=== PATIENT | male | born 1955 | race Caucasian/White ===

== ENCOUNTER → 2017-04-20 07:56 | Outpatient (CLI) | payer OTHER, SELFPAY ==
[2017-04-20 10:17] LABS: Anion Gap 9 (5-15); BUN 19 mg/dL (7-18); BUN/Creat Ratio 16.8 RATIO (10-20); Calcium,Total 8.7 mg/dL (8.5-10.1); Chloride 106 mmol/L (98-107); Cholesterol 210 mg/dL (200); Creatinine, Serum 1.13 mg/dL (0.70-1.30); EST Glomerular Filtration Rate 70 mL/min (>60); Est Glom Filt Rate - Afr Amer 85 mL/min (>60); Glucose 119 mg/dL (74-106); High Density Lipoprotein 29 mg/dL; PSA,Total - Annual Screen 0.65 ng/mL (0.00-4.00); Potassium 4.3 mmol/L (3.5-5.1); Sodium Level 143 mmol/L (136-145); Triglycerides 447 mg/dL
== END ==
PROVIDERS: Family Provider Family Medicine; PCP Family Medicine; Visit Provider Family Medicine
DX: E78.5 Hyperlipidemia, unspecified (principal); N42.9 Disorder of prostate, unspecified
CPT/HCPCS: 36415; 80048; 80061; 84153; G0103

== ENCOUNTER → 2017-05-22 06:27 | Outpatient (CLI) | payer OTHER, SELFPAY ==
--- NOTE | 2017-05-22 10:12 | STRESSREP ---
Stress Test Report Exercise myocardial perfusion stress test. 62-year-old man with a history of shortness of breath on exertion. Stress protocol: Resting EKG demonstrates normal sinus rhythm with a rate of 62 bpm. Normal intervals are noted. Resting blood pressure is 150/92 mmHg. The patient exercised according to the regular Daniel protocol for a total duration of 7 minutes. The maximum heart rate attained was 150 bpm which was 94% of maximum predicted heart rate. The maximum workload attained was 8.5 metabolic equivalents. Patient maintained sinus rhythm throughout the recording with occasional premature ventricular complexes. At rest there were no ST or T-wave changes noted suggest ischemia. At peak exercise there was approximately [address] depression noted in leads II and aVF and 1.[address] depression noted in lead V5 and V6 suggestive of ischemia. No clinical angina or chest pain was noted the resting blood pressure was 150/92 with a peak blood pressure of 192/82 mmHg and the rate pressure product of 26,600. Myocardial perfusion protocol. 11.9 mCi of technetium 99m sestamibi was injected at rest. The patient exercised according to regular Daniel protocol for a total duration of 7 minutes attaining 94% of the maximum predicted heart rate. At peak exercise 34.3 mCi of technetium 99m sestamibi was injected. Stress images were obtained. Stress and rest images were reconstructed and compared to the short axis vertical long and horizontal long axis. Gated images were also obtained. Perfusion SPECT analysis. Review of the stress images demonstrate normal uptake of tracer noted in all areas of the myocardium the resting images similarly demonstrate normal uptake of tracer noted in all areas of the myocardium. No obvious areas of reversibility are noted to suggest ischemia and no previous infarct is noted. No chamber dilatation is noted. Gated SPECT analysis. The gated ejection fraction is 68%. Conclusion: Exercise myocardial perfusion stress test with no nuclear images suggestive of ischemia at a moderate workload. EKG changes with criteria meeting ischemia at the workload attained. Preserved ejection fraction.
== END ==
PROVIDERS: Family Provider Family Medicine; PCP Family Medicine; Visit Provider Family Medicine
DX: R06.02 Shortness of breath (principal)
CPT/HCPCS: 78452; 93017; A9500; A4216

== ENCOUNTER → 2017-05-24 10:29 | Outpatient (CLI) | payer OTHER, SELFPAY ==
[2017-05-24 11:30] LABS: Absolute Lymphocyte Count 0.83 X10^3/ul (0.83-4.51); Absolute Neutrophil Count 3.4 X10^3/uL (2.0-7.7); Basophil# 0.01 X10^3/uL; Basophil% 0.2 % (0-1); Eosinophil# 0.13 X10^3/uL; Eosinophils% 2.7 % (0-5); Hematocrit 43.7 % (40-54); Hemoglobin 14.7 g/dl (13.0-16.5); Lymphocyte # 0.83 X10^3/ul (4.0); Lymphocyte % 17.5 % (19-41); Mean Corp Hgb Conc 33.6 g/gl (32-36); Mean Corpuscular Hgb 30.7 pg (27.0-32.0); Mean Corpuscular Volume 91.2 fL (80-94); Mean Platelet Vol. 10.2 fl (6.2-12.0); Monocyte# 0.39 X10^3/uL; Monocyte% 8.2 % (0-10); Neutrophil # 3.38 X10^3/uL (2.7-7.7); Neutrophil % 71.2 % (47-70); Platelet Count 171 K/mm3 (150-450); Prothrombin Time (Protime)PT. 12.9 SECONDS (11.7-14.9); RBC Distribution Width CV 13.7 % (11.6-14.6); RBC Distribution Width SD 45.2 fl (35.1-43.9); Red Blood Count 4.79 M/mm3 (4.6-6.2); White Blood Count 4.8 K/mm3 (4.4-11.0)
[2017-05-24 11:36] LABS: POSITIVE COUNT NO; POSITIVE DIFFERENTIAL NO; POSITIVE MORPHOLOGY NO
[2017-05-24 11:54] LABS: Anion Gap 10 (5-15); BUN 22 mg/dL (7-18); BUN/Creat Ratio 20.2 RATIO (10-20); Chloride 107 mmol/L (98-107); Creatinine, Serum 1.09 mg/dL (0.70-1.30); EST Glomerular Filtration Rate 73 mL/min (>60); Est Glom Filt Rate - Afr Amer 88 mL/min (>60); Glucose 123 mg/dL (74-106); Potassium 4.2 mmol/L (3.5-5.1); Sodium Level 141 mmol/L (136-145)
[2017-05-24 17:07] LABS: Hemoglobin A1c 5.2 % (4.2-6.3)
== END ==
PROVIDERS: Family Provider Family Medicine; PCP Family Medicine; Visit Provider Internal Medicine Cardiovascular Disease
DX: R73.01 Impaired fasting glucose (principal); R94.39 Abnormal result of other cardiovascular function study
CPT/HCPCS: 36415; 80048; 83036; 85025; 85610

== ENCOUNTER → 2017-05-29 09:54 | Day surgery (SDC) | payer OTHER, SELFPAY ==
--- NOTE | 2017-05-24 10:40 | RAD_ITS ---
STUDY: X-RAY CHEST REASON FOR EXAM: Male, 62 years old. Chest pain TECHNIQUE: Frontal and lateral views of the chest. COMPARISON: None. FINDINGS: The lungs are clear and expanded. There is no demonstrated pleural abnormality. Normal size heart. Normal mediastinum and mil. Normal visualized pulmonary arteries. Normal visualized aortic arch and descending thoracic aorta. There are diffuse degenerative changes of the visualized thoracic spine. Normal visualized ribs, clavicles, and shoulders. There is no demonstrated abnormality of the visualized soft tissue structures of the upper abdomen. RAD/Chest PA and Lateral IMPRESSION: Normal x-ray examination of the chest. Electronically Signed: Teto Connell MD at 23:51 EDT , Service support ,
[2017-05-26 13:50] VITALS: BMI 31.3
--- NOTE | 2017-05-29 11:26 | CL.D_ITS ---
Patient Name: JUVENAL FELICIANO Study Date: 05/29/2017 Performing: Dominick Larkin MD Ht: 68.11 inches 173 cm : 1955 Wt: 205.03 lbs 93 kg Age: 62 Gender: male BSA: 2.07 PROCEDURE(S) PERFORMED [id number]/COR/LV CLINICAL PROFILE AND INDICATIONS INDICATIONS: Other HEART FAILURE: None Stress/Imaging Stress Test w/SPECT MPI: Yes Result: Positive Low RiskStress Test with SPECT MPI: Positive Low Risk Angina Classification Anginal Classification w/in 2 Weeks: CCS I CAD Presentations: Symptom unlikely to be ischemic. CONCLUSIONS Normal coronary arteries Normal LV size, wall motion,and systolic function RECOMMENDATIONS Medical therapy DESCRIPTION OF PROCEDURE The patient arrived to the procedure lab. The risks and benefits of the procedure as well as a full d escription of our services here and current unavailability of surgical backup were fully explained to the patient and/or their significant other prior to the catheterization. The Timeout was completed, verifying the correct patient and procedure. The patient's procedural site was prepped and draped in the usual fashion. Local anesthetic was given subcutaneously to right radial region with Lidocaine 2% . Using a modified Seldinger technique, arterial access was obtained via the right radial artery, a 6 Fr sheath was inserted. Left Coronary Artery selective angiography was performed in multiple views u sing a 5 Fr. 4.0 Wesson catheter. Right Coronary Artery selective angiography was then performed in mu ltiple views using a 5 Fr. 4.0 Wesson catheter. Left Ventriculography was performed in KERR projection using a 5 Fr. Pigtail catheter. LV to AO pullback pressures were then recorded. CORONARY ANGIOGRAPHY DOMINANCE: Right Dominant LEFT HEART ASSESSMENT Left Ventricular Ejection Fraction: by LV Gram 60 % Normal LV wall motion Normal Left Ventricular systolic function Normal Left Ventricular systolic function LEFT MAIN: Angiographically normal LEFT ANTERIOR DECENDING ARTERY: Angiographically normal CIRCUMFLEX ARTERY: Angiographically normal RIGHT CORONARY ARTERY: Angiographically normal COMPLICATIONS No Complications PROCEDURE MEDICATIONS Fentanyl 50 mcg IV Versed 1 mg IV Versed 1 mg IV Oxygen: 2 L/min via nasal cannula Heparin diluted in 23cc Heparinized saline. Patient given 10cc IA of this solution. 05/29/2017 11:03:2 5 Verapamil 2.5mg, Ntg 100mcgs, 2000 units of Heparin diluted in 23cc Heparinized saline. Patient give n 10cc IA of this solution. 05/29/2017 11:03:25 SUMMARY OF HEMODYNAMIC DATA Time AIR REST ECG 10:15:30 AO 119/73 (91) SA 11:06:57 LV 129/4, 11 11:13:25 LV 123/5, 10 11:13:33 LV 126/7, 13 11:14:58 LVp 125/3, 10 11:15:04 AOp 135/75 (102) 11:15:09 Signed By Dominick Larkin MD On 05/29/2017 11:25:24 AM Dominick Larkin MD
== END ==
PROVIDERS: Family Provider Family Medicine; PCP Family Medicine; Visit Provider Internal Medicine Cardiovascular Disease
DX: R94.39 Abnormal result of other cardiovascular function study (principal); E78.5 Hyperlipidemia, unspecified; E66.9 Obesity, unspecified; Z87.891 Personal history of nicotine dependence; Z68.34 Body mass index [BMI] 34.0-34.9, adult
CPT/HCPCS: 71046; 93458; 99152; 99153; J3010; J7040; Q9967; C1769; C1894

== ENCOUNTER → 2018-05-31 07:50 | Outpatient (CLI) | payer OTHER, SELFPAY ==
[2018-05-24 09:08] VITALS: BMI 32.5
[2018-05-31 10:46] LABS: AST(SGOT) 30 U/L (15-37); Alanine Aminotransfer ALT/SGPT 58 U/L (16-61); Albumin, Serum 4.3 g/dL (3.2-5.0); Alkaline Phosphatase 54 U/L (45-117); Bilirubin, Direct 0.19 mg/dL (0.00-0.30); Cholesterol 200 mg/dL (200); Globulin 2.7 g/dL (2.2-4.2); High Density Lipoprotein 29 mg/dL; Triglycerides 318 mg/dL; Very Low Density Lipoprotein 64 mg/dL (5-40)
== END ==
PROVIDERS: Family Provider Family Medicine; PCP Family Medicine; Referring Provider Internal Medicine Cardiovascular Disease; Visit Provider Internal Medicine Cardiovascular Disease
DX: E78.5 Hyperlipidemia, unspecified (principal)
CPT/HCPCS: 36415; 80061; 80076

== ENCOUNTER → 2018-10-30 12:21 | Outpatient (CLI) | payer OTHER, SELFPAY ==
[2018-05-24 09:08] VITALS: BMI 32.5
--- NOTE | 2018-10-30 12:24 | RAD_ITS ---
STUDY: X-RAY CHEST REASON FOR EXAM: Male, 63 years old. Posterior chest pain. TECHNIQUE: PA and lateral views of the chest. COMPARISON: Comparison is made with prior study dated May 24, 2017. FINDINGS: The lungs are clear and expanded. Scattered calcified granulomas. There is no demonstrated pleural abnormality. Normal size heart. Normal mediastinum and mil. Normal visualized pulmonary arteries. Normal visualized aortic arch and descending thoracic aorta. There are diffuse degenerative changes of the visualized thoracic spine. Normal visualized ribs, clavicles, and shoulders. There is no demonstrated abnormality of the visualized soft tissue structures of the upper abdomen. RAD/Chest PA and Lateral IMPRESSION: No acute abnormality is seen. Electronically Signed: Luca Diaz, at 12:39 EDT , Service support ,
== END ==
PROVIDERS: Family Provider Family Medicine; PCP Family Medicine; Referring Provider Nurse Practitioner Adult Health; Visit Provider Nurse Practitioner Adult Health
DX: R09.89 Other specified symptoms and signs involving the circulatory and respiratory systems (principal)
CPT/HCPCS: 71046

== ENCOUNTER → 2018-11-28 07:14 | Outpatient (CLI) | payer OTHER, SELFPAY ==
[2018-05-24 09:08] VITALS: BMI 32.5
[2018-11-28 10:15] LABS: AST(SGOT) 29 U/L (15-37); Alanine Aminotransfer ALT/SGPT 56 U/L (16-61); Albumin, Serum 4.3 g/dL (3.2-5.0); Alkaline Phosphatase 58 U/L (45-117); Bilirubin, Direct 0.15 mg/dL (0.00-0.30); Globulin 3.2 g/dL (2.2-4.2); Protein, Total 7.5 g/dL (6.4-8.2)
[2018-11-28 10:31] LABS: Anion Gap 3 (5-15); BUN 20 mg/dL (7-18); BUN/Creat Ratio 17.1 RATIO (10-20); Calcium,Total 9.4 mg/dL (8.5-10.1); Chloride 109 mmol/L (98-107); Cholesterol 223 mg/dL (200); Creatinine, Serum 1.17 mg/dL (0.70-1.30); EST Glomerular Filtration Rate 67 mL/min (>60); Est Glom Filt Rate - Afr Amer 81 mL/min (>60); Glucose 109 mg/dL (74-106); High Density Lipoprotein 36 mg/dL; Potassium 4.1 mmol/L (3.5-5.1); Sodium Level 140 mmol/L (136-145); Thyroid Stim Hormone (TSH) 1.81 uIU/mL (0.358-3.74); Triglycerides 326 mg/dL; Uric Acid 7.3 mg/dL (3.5-7.2); Very Low Density Lipoprotein 65 mg/dL (5-40)
== END ==
PROVIDERS: Internal Medicine Cardiovascular Disease; Family Provider Family Medicine; PCP Family Medicine; Referring Provider Family Medicine; Visit Provider Family Medicine
DX: Z00.00 Encounter for general adult medical examination without abnormal findings (principal); E78.5 Hyperlipidemia, unspecified
CPT/HCPCS: 36415; 80048; 80061; 80076; 84153; 84443; 84550; G0103

== ENCOUNTER → 2019-04-17 08:29 | Outpatient (CLI) | payer OTHER, SELFPAY ==
[2018-05-24 09:08] VITALS: BMI 32.5
[2019-04-17 10:43] LABS: Erythrocyte Sedimentation Rate 3 mm/hr (0-20)
[2019-04-17 11:14] LABS: Cholesterol 233 mg/dL (200); High Density Lipoprotein 45 mg/dL; Triglycerides 273 mg/dL; Uric Acid 5.8 mg/dL (3.5-7.2); Very Low Density Lipoprotein 55 mg/dL (5-40)
[2019-04-18 15:23] LABS: ANTINUCLEAR ANTIBODIES DIRECT Negative (Negative)
== END ==
PROVIDERS: PCP Family Medicine; Referring Provider Family Medicine; Visit Provider Family Medicine
DX: M10.9 Gout, unspecified (principal); E78.00 Pure hypercholesterolemia, unspecified
CPT/HCPCS: 36415; 80061; 84550; 85652; 86038

== ENCOUNTER → 2020-09-22 09:34 | Outpatient (CLI) | payer MEDICARE, BC, SELFPAY ==
[2019-11-20 15:55] VITALS: BMI 32.2
[2020-09-22 12:39] LABS: Absolute Neutrophil Count 3.3 X10^3/uL (2.0-7.7); Basophil# 0.02 X10^3/uL; Basophil% 0.4 % (0-1); Eosinophil# 0.15 X10^3/uL; Eosinophils% 3.2 % (0-5); Hemoglobin 14.3 g/dL (13.0-16.5); Lymphocyte % 14.8 % (19-41); Mean Corpuscular Hgb 30.8 pg (27.0-32.0); Mean Corpuscular Volume 90.3 fL (80-94); Mean Platelet Vol. 9.8 fl (6.2-12.0); Monocyte% 10.5 % (0-10); NRBC Flagged by Analyzer 0 % (0-5); Neutrophil # 3.34 X10^3/uL (2.7-7.7); Neutrophil % 70.5 % (47-70); Platelet Count 181 K/mm3 (150-450); RBC Distribution Width SD 45.9 fl (35.1-43.9); Red Blood Count 4.65 M/mm3 (4.6-6.2); White Blood Count 4.7 K/mm3 (4.4-11.0)
[2020-09-22 13:14] LABS: Hemoglobin A1c 5.5 % (3.8-5.6)
[2020-09-22 13:25] LABS: ALB/GLOB Ratio 1.5 RATIO (0.9-2.4); AST(SGOT) 23 U/L (15-37); Alanine Aminotransfer ALT/SGPT 47 U/L (16-61); Albumin, Serum 4.3 g/dL (3.2-5.0); Alkaline Phosphatase 47 U/L (45-117); Anion Gap 8 (5-15); BUN 15 mg/dL (7-18); BUN/Creat Ratio 14.3 RATIO (10-20); Chloride 108 mmol/L (98-107); Cholesterol 151 mg/dL (200); Creatinine, Serum 1.05 mg/dL (0.70-1.30); EST Glomerular Filtration Rate 75 mL/min (>60); Est Glom Filt Rate - Afr Amer 91 mL/min (>60); Globulin 2.9 g/dL (2.2-4.2); Glucose 105 mg/dL (74-106); High Density Lipoprotein 32 mg/dL; PSA,Total - Annual Screen 0.67 ng/mL (0.00-4.00); Potassium 4.3 mmol/L (3.5-5.1); Protein, Total 7.2 g/dL (6.4-8.2); Sodium Level 140 mmol/L (136-145); Triglycerides 178 mg/dL; Uric Acid 5.8 mg/dL (3.5-7.2); Very Low Density Lipoprotein 36 mg/dL (5-40)
== END ==
PROVIDERS: PCP Family Medicine; Referring Provider Family Medicine; Visit Provider Family Medicine
DX: E78.5 Hyperlipidemia, unspecified (principal); M10.9 Gout, unspecified; R73.01 Impaired fasting glucose; Z51.81 Encounter for therapeutic drug level monitoring; Z12.5 Encounter for screening for malignant neoplasm of prostate
CPT/HCPCS: 36415; 80053; 80061; 83036; 84153; 84550; 85025; G0103

== ENCOUNTER → 2020-09-24 08:46 | Outpatient (CLI) | payer MEDICARE, BC, SELFPAY ==
[2019-11-20 15:55] VITALS: BMI 32.2
--- NOTE | 2020-09-24 08:50 | US_ITS ---
STUDY: ULTRASOUND BREAST - RIGHT REASON FOR EXAM: Male, 65 years old. Pain after trauma TECHNIQUE: Axial and longitudinal images of the RIGHT breast were performed with a high resolution ultrasound transducer. # OF IMAGES: 24 COMPARISON: None. FINDINGS: RIGHT Breast: Sonographic evaluation of the right breast in the retroareolar region shows a poorly defined hypoechoic nonvascular area measuring 1.4 x 1.6 x 1.0 cm and likely represents a hematoma. Follow-up recommended to assure resolution. No suspicious solid mass architectural distortion or clustered shadowing calcifications US/Breast Limited Unilateral IMPRESSION: Likely retroareolar hematoma after recent trauma follow-up recommended to assure resolution ASSESSMENT CATEGORY: BIRADS Category 3: Probably Benign - Short-Interval Follow-up Suggested. A letter regarding these results will be sent to the patient by the facility within 30 days. Electronically Signed: Art Driscoll MD at 10:05 EDT , Service support ,
--- NOTE | 2020-09-24 08:50 | US_ITS ---
PROCEDURES: ULTRASOUND AORTA REASON FOR EXAM: Male, 65 years old. HISTORY OF SMOKING TECHNIQUE: Ultrasound evaluation of the aorta was performed with real-time and static goel-scale imaging. COMPARISON: None. FINDINGS: There is no elongation or tortuosity of the abdominal aorta. Aorta measures: Proximal 2.3 cm. Middle 1.55 cm. Distal 1.50 cm. Aorta measure transversely: Proximal 2.39 cm. Middle 1.90 cm. Distal 1.41 cm. Right iliac artery measures: 0.88 cm. Right iliac artery measure transversely: 1.02 cm. Left iliac artery measures: 0.88 cm. Left iliac artery measure transversely: 1.04 cm. There is no demonstrated aneurysm.. US/US ABD AORTA SCREEN/AAA IMPRESSION: No sonographic evidence of aneurysm or dissection Electronically Signed: Art Driscoll MD at 9:51 EDT , Service support ,
--- NOTE | 2020-09-24 08:50 | BI_ITS ---
MAMMOGRAPHY - BILATERAL DIAGNOSTIC REASON FOR EXAM: Male, 65 years old. Right breast lump and tenderness following injury to the right breast. PERTINENT HISTORY: Non-contributory. TECHNIQUE: Digital bilateral breast kolby (3D mammographic acquisition) in the CC and MLO projections. 2-D mediolateral oblique (MLO) and craniocaudad (CC) views of both breasts were obtained. CAD: Full Field Digital Mammography with Computer Added Detection was performed. COMPARISON: None. Baseline examination. FINDINGS: Breast Composition: Asymmetry of breast tissue or more breast tissue is seen in the retroareolar region of the right breast as compared to the left side. With the patient''s history of trauma to the breast, this may represent posttraumatic edema or possible bruising. There are no dominant masses or suspicious calcifications. No other significant abnormalities are identified. BI/DIAG MAMM W/CAD, BILAT IMPRESSION: Asymmetry of breast tissue were more breast tissue is seen in the right breast as compared to the left side. Correlation with ultrasound is recommended. ASSESSMENT CATEGORY: BIRADS Category 0: Incomplete. Need additional imaging evaluation. A letter regarding these results will be sent to the patient by the facility within 30 days. Approximately 10% of breast cancers are not detected by mammography. A normal mammogram should not delay biopsy of a clinically suspicious abnormality. Electronically Signed: Luca Diaz MD at 10:10 EDT , Service support ,
== END ==
PROVIDERS: PCP Family Medicine; Referring Provider Family Medicine; Visit Provider Family Medicine
DX: Z13.6 Encounter for screening for cardiovascular disorders (principal); Z87.891 Personal history of nicotine dependence; N63.10 Unspecified lump in the right breast, unspecified quadrant; N64.89 Other specified disorders of breast
CPT/HCPCS: 76642; 76706; 77062; 77066; G0279

== ENCOUNTER 2021-03-02 08:33 | Outpatient (CLI) | payer MEDICARE, BC, SELFPAY | END 2021-03-02 23:59 | disposition short-term general hospital (02) | LOC: LABSPEC 03-03 08:35 | PROVIDERS: PCP Family Medicine; Visit Provider Family Medicine | DX: U07.1 COVID-19 (principal) | CPT/HCPCS: 87635; U0003; U0005 ==

== ENCOUNTER → 2021-09-23 | Outpatient (CLI) | payer MEDICARE, BC, SELFPAY ==
[2021-09-23 10:22] LABS: Absolute Lymphocyte Count 0.64 X10^3/uL (0.83-4.51); Absolute Neutrophil Count 4.7 X10^3/uL (2.0-7.7); Basophil# 0.02 X10^3/uL; Basophil% 0.3 % (0-1); Eosinophil# 0.14 X10^3/uL; Eosinophils% 2.3 % (0-5); Hematocrit 43.1 % (40-54); Hemoglobin 14.7 g/dL (13.0-16.5); Lymphocyte # 0.64 X10^3/ul (0.83-4.51); Lymphocyte % 10.5 % (19-41); Mean Corp Hgb Conc 34.1 g/dL (32-36); Mean Corpuscular Hgb 30.3 pg (27.0-32.0); Mean Corpuscular Volume 88.9 fL (80-94); Mean Platelet Vol. 9.8 fl (6.2-12.0); Monocyte# 0.51 X10^3/uL; Monocyte% 8.3 % (0-10); NRBC Flagged by Analyzer 0 % (0-5); Neutrophil # 4.74 X10^3/uL (2.7-7.7); Neutrophil % 77.6 % (47-70); Platelet Count 176 K/mm3 (150-450); RBC Distribution Width CV 13.9 % (11.6-14.6); RBC Distribution Width SD 44.6 fl (35.1-43.9); Red Blood Count 4.85 M/mm3 (4.6-6.2); White Blood Count 6.1 K/mm3 (4.4-11.0)
[2021-09-23 11:03] LABS: ALB/GLOB Ratio 1.3 RATIO (0.9-2.4); AST(SGOT) 33 U/L (15-37); Alanine Aminotransfer ALT/SGPT 53 U/L (16-61); Albumin, Serum 4.1 g/dL (3.2-5.0); Alkaline Phosphatase 50 U/L (45-117); Anion Gap 6 (5-15); BUN 19 mg/dL (7-18); BUN/Creat Ratio 18.3 RATIO (10-20); Calcium,Total 9.4 mg/dL (8.5-10.1); Chloride 106 mmol/L (98-107); Cholesterol 218 mg/dL (200); Creatinine, Serum 1.04 mg/dL (0.70-1.30); EST Glomerular Filtration Rate 76 mL/min (>60); Est Glom Filt Rate - Afr Amer 92 mL/min (>60); Globulin 3.1 g/dL (2.2-4.2); Glucose 115 mg/dL (74-106); High Density Lipoprotein 34 mg/dL; PSA,Total - Annual Screen 0.85 ng/mL (0.00-4.00); Potassium 4.4 mmol/L (3.5-5.1); Protein, Total 7.2 g/dL (6.4-8.2); Sodium Level 138 mmol/L (136-145); Triglycerides 489 mg/dL; Uric Acid 7.5 mg/dL (3.5-7.2)
[2021-09-24 07:50] LABS: Hemoglobin A1c 5.5 % (3.8-5.6)
== END | disposition home or self-care (01) ==
LOC: MTLAB 09:03
PROVIDERS: PCP Family Medicine; Referring Provider Family Medicine; Visit Provider Family Medicine
DX: Z12.5 Encounter for screening for malignant neoplasm of prostate (principal); R73.01 Impaired fasting glucose; E78.5 Hyperlipidemia, unspecified; M10.9 Gout, unspecified; Z51.81 Encounter for therapeutic drug level monitoring
CPT/HCPCS: 36415; 80053; 80061; 83036; 84153; 84550; 85025; G0103

== ENCOUNTER → 2022-10-10 | Outpatient (CLI) | payer MEDICARE, BC, SELFPAY ==
[2022-10-10 12:15] LABS: Absolute Lymphocyte Count 0.82 X10^3/uL (0.83-4.51); Absolute Neutrophil Count 2.9 X10^3/uL (2.0-7.7); Basophil# 0.02 X10^3/uL; Basophil% 0.5 % (0-1); Eosinophil# 0.12 X10^3/uL; Eosinophils% 2.8 % (0-5); Hematocrit 41.6 % (40-54); Hemoglobin 13.9 g/dL (13.0-16.5); Lymphocyte # 0.82 X10^3/ul (0.83-4.51); Lymphocyte % 18.9 % (19-41); Mean Corp Hgb Conc 33.4 g/dL (32-36); Mean Corpuscular Hgb 30.8 pg (27.0-32.0); Mean Corpuscular Volume 92.2 fL (80-94); Mean Platelet Vol. 10.3 fl (6.2-12.0); Monocyte# 0.41 X10^3/uL; Monocyte% 9.5 % (0-10); NRBC Flagged by Analyzer 0 % (0-5); Neutrophil # 2.94 X10^3/uL (2.7-7.7); Neutrophil % 67.8 % (47-70); Platelet Count 159 K/mm3 (150-450); RBC Distribution Width CV 13.1 % (11.6-14.6); RBC Distribution Width SD 43.7 fl (35.1-43.9); Red Blood Count 4.51 M/mm3 (4.6-6.2); White Blood Count 4.3 K/mm3 (4.4-11.0)
[2022-10-10 13:09] LABS: ALB/GLOB Ratio 1.3 RATIO (0.9-2.4); AST(SGOT) 19 U/L (15-37); Alanine Aminotransfer ALT/SGPT 27 U/L (16-61); Albumin, Serum 3.9 g/dL (3.2-5.0); Alkaline Phosphatase 45 U/L (45-117); Anion Gap 5 (5-15); BUN 22 mg/dL (7-18); BUN/Creat Ratio 20.4 RATIO (10-20); Calcium,Total 8.8 mg/dL (8.5-10.1); Chloride 111 mmol/L (98-107); Cholesterol 163 mg/dL (200); Creatinine, Serum 1.08 mg/dL (0.70-1.30); EST Glomerular Filtration Rate 72 mL/min (>60); Est Glom Filt Rate - Afr Amer 88 mL/min (>60); Globulin 2.9 g/dL (2.2-4.2); Glucose 100 mg/dL (74-106); High Density Lipoprotein 39 mg/dL; PSA,Total - Annual Screen 0.72 ng/mL (0.00-4.00); Potassium 4.3 mmol/L (3.5-5.1); Protein, Total 6.8 g/dL (6.4-8.2); Sodium Level 143 mmol/L (136-145); Triglycerides 165 mg/dL; Uric Acid 7.9 mg/dL (3.5-7.2); Very Low Density Lipoprotein 33 mg/dL (5-40)
== END | disposition home or self-care (01) ==
LOC: BFHLAB 08:26
PROVIDERS: PCP Family Medicine; Referring Provider Family Medicine; Visit Provider Family Medicine
DX: E78.5 Hyperlipidemia, unspecified (principal); M10.9 Gout, unspecified; Z12.5 Encounter for screening for malignant neoplasm of prostate; Z51.81 Encounter for therapeutic drug level monitoring
CPT/HCPCS: 36415; 80053; 80061; 84153; 84550; 85025; G0103

== ENCOUNTER → 2023-02-16 | Outpatient (CLI) | payer MEDICARE, BC, SELFPAY ==
--- NOTE | 2023-02-16 09:11 | RAD_ITS ---
STUDY: X-RAY - LUMBAR SPINE REASON FOR EXAM: Male, 67 years old. Back pain. TECHNIQUE: 5 view(s) of the lumbar spine were obtained. COMPARISON: None FINDINGS: Osteopenia. Normal lumbar lordosis. No substantial scoliosis. Normal alignment of the vertebrae. Diffuse mild lower thoracic and lumbosacral facet sclerosis. Diffuse mild intervertebral disc space narrowing with osteophytes most marked at L2-3, L3-4, L4-5 and to the greatest degree L5-S1. Vascular calcification. RAD/L/S Spine Min 4 Views IMPRESSION: Osteopenia with mild diffuse lower thoracic and lumbosacral spondylosis. Electronically Signed: Chad Morgan MD at 13:28 EST ,
== END | disposition home or self-care (01) ==
LOC: MTRAD 09:09
PROVIDERS: PCP Family Medicine; Referring Provider Family Medicine; Visit Provider Family Medicine
DX: M54.17 Radiculopathy, lumbosacral region (principal)
CPT/HCPCS: 72110

== ENCOUNTER → 2023-04-24 | Outpatient (CLI) | payer MEDICARE, BC, SELFPAY ==
--- NOTE | 2023-04-24 | MRI_ITS ---
EXAM: MR LUMBAR SPINE WITHOUT INTRAVENOUS CONTRAST CLINICAL INDICATION: RADICULOPATHY TECHNIQUE: Multiplanar and multisequence MR images of the lumbar spine without intravenous contrast. COMPARISON: Lumbar spine radiographs, 02/16/[address] abdomen and pelvis, 12/19/2016 FINDINGS: VERTEBRAE: Modic type II endplate signal changes at L5-S1. The lumbar vertebra are normal in height and alignment. No spondylolisthesis. There is preservation of the normal lumbar lordosis. SPINAL CORD: No significant abnormality. Normal position and signal intensity of the conus medullaris. SOFT TISSUES: No significant abnormality. DISCS/SPINAL CANAL/NEURAL FORAMINA: L1-L2: Mild bilateral facet arthrosis. No disc herniation, spinal canal stenosis, or neural foraminal narrowing. L2-L3: Mild bilateral facet arthrosis. Very mild disc bulge. No disc herniation, spinal canal stenosis, or neural foraminal narrowing. L3-L4: Disc height loss and disc desiccation. Disc bulge and mild bilateral facet arthrosis. Mild spinal canal stenosis and mild bilateral neural foraminal narrowing. L4-L5: Disc height loss and disc desiccation. Disc bulge and moderate bilateral facet arthrosis. Mild spinal canal stenosis and moderate right greater than left neural foraminal narrowing. No nerve root impingement. L5-S1: Disc height loss and disc desiccation. Central disc herniation superimposed upon a disc bulge and mild bilateral facet arthrosis. Moderate bilateral neural foraminal narrowing and mild spinal canal stenosis. No nerve root impingement. MRI/Spine Lumbar (Routine) IMPRESSION: Multilevel degenerative changes. No critical spinal canal and neural foraminal stenosis and no evidence of nerve root impingement. Electronically Signed: Adis Ochoa DO at 0:01 EST ,
--- OUTSIDE RECORDS SUMMARY | 2023-04-24 08:30 | XMS RPT_ITS | CCD ---
Author Name Unknown Address [address] [place] [address] Organization [facility] Care Team Providers Care Service Line Layer Name Role Phone Eduardo Daniels Primary Care Provider [phone] SYSTEM, PROVIDER NOT IN Attending Unavaila ble SYSTEM, PROVIDER NOT IN Referring Unavaila ble EDUARDO DANIELS Primary Care Unavailable YOLANDA DAY Admitting Unavailab le JAMAALYOLANDA ONEILL Referring Unavailab le DANIELSEDUARDO NERI Primary Care Unavailable Yolanda Day Unavailable [phone] Yolanda Day Unavailable YOLANDA DAY Admitting Unavailab YOLANDA Sanchez Referring Unavailab le DANIELSEDUARDO NERI Primary Care Unavailable YOLANDA DAY Attending Unavailab le YOLANDA DAY Referring Unavailab le DANIELSEDUARDO NERI Primary Care Unavailable STEFANY PATEL Admitting Unavailable MITUL HASSAN Attending Unavailable STEFANY PATEL Referring Unavailable EDUARDO DANIELS Primary Care Unavailable YOLANDA ADY Admitting Unavailab le YOLANDA DAY Attending Unavailab le EDUARDO DANIELS Primary Care Unavailable STEFANY PATEL Admitting Unavailable SLOANE JOYCE Attending Unavailable STEFANY PATEL Referring Unavailable DANIELSEDUARDO NERI Primary Care Unavailable YOLANDA DAY Attending Unavailab YOLANDA Sanchez Referring Unavailab le DANIELSEDUARDO NERI Primary Care Unavailable MELO GARCIA Attending Unavailable STEFANY PATEL Referring Unavailable DANIELSEDUARDO NERI Primary Care Unavailable STEFANY PATEL Admitting Unavailable STEFANY PATEL Admitting Unavailable EUGENEMITUL Attending Unavailable STEFANY PATEL Referring Unavailable DANIELSEDUARDO NERI Primary Care Unavailable STEFANY PATEL Admitting Unavailable MELO GARCIA Attending Unavailable STEFANY PATEL Referring Unavailable DANIELSEDUARDO NERI Primary Care Unavailable MITALI, STEFANY MESA Admitting Unavailable SLOANE JOYCE Attending Unavailable PATELSTEFANY PARKER Referring Unavailable DANIELS, EDUARDO CONCEPCION Primary Care Unavailable MITUL HASSAN Attending Unavailable STEFANY PATEL Referring Unavailable DANIELS, EDUARDO CONCEPCION Primary Care Unavailable STEFANY PATEL Admitting Unavailable DANIELS, EDUARDO CONCEPCION Primary Care Unavailable MORIAH HODGE Attending Unavailable DANIELS, EDUARDO CONCEPCION Primary Care Unavailable YOLANDA DAY Referring Unavailab le DANIELS, EDUARDO CONCEPCION Primary Care Unavailable HILARY VELAZQUEZ Attending Unavailable DANIELS, EDUARDO CONCEPCION Primary Care Unavailable YOLANDA DAY Attending Unavailab le DANIELS, EDUARDO CONCEPCION Primary Care Unavailable PAULA REARDON Attending Unavailable DANIELS, EDUARDO CONCEPCION Primary Care Unavailable YOLANDA DAY Attending Unavailab le DANIELS, EDUARDO CONCEPCION Primary Care Unavailable YOLANDA DAY Attending Unavailab le DANIELS, EDUARDO CONCECPION Primary Care Unavailable YOLANDA DAY Attending Unavailab le DANIELS, EDUARDO CONCEPCION Primary Care Unavailable YOLANDA DAY Admitting Unavailab YOLANDA Sanchez Referring Unavailab le DANIELS, EDUARDO CONCEPCION Primary Care Unavailable STEFANY PATEL Attending Unavailable Medications Current Medications Medication Drug Class(es) Dates Sig (Normalized) Sig (Original) allopurinol 300 mg oral tablet (20 sources) Xanthine Oxidase Inhibitor Start: 08-19-2019 End: 01-07-2020 take 1 tablet by mouth once daily allopurinoL (ZYLOPRIM) 300 MG tablet Take 300 mg by mouth daily . 0 08/19/2019 Active aspirin 325 mg delayed release oral tablet (19 sources) Platelet Aggregation Inhibitor, Nonsteroidal Anti-inflammatory Drug Start: 01-06-2020 End: 02-06-2020 take 1 tablet by mouth twice daily aspirin 325 MG EC tablet Take 1 (one) tablet (325 mg total) by mouth 2 (two) times a day . 60 tablet 0 01/07/2020 02/06/2020 Active cyclobenzaprine hydrochloride 10 mg oral tablet (11 sources) Muscle Relaxant Start: 01-06-2020 End: 01-17-2020 take 1 tablet by mouth three times daily as needed for muscle spasms cyclobenzaprine (FLEXERIL) 10 MG tablet Take 1 (one) tablet (10 mg total) by mouth 3 (three) times a day as needed for muscle spasms . 30 tablet 0 01/07/2020 01/17/2020 Active diphenhydrAMINE hydrochloride 25 mg oral tablet (16 sources) Histamine-1 Receptor Antagonist take 1 tablet by mouth every six hours as needed diphenhydrAMINE (BENADRYL) 25 mg tablet Take 25 mg by mouth every 6 (six) hours as needed. 0 Active multivitamin (multivitamin) per tablet (19 sources) take 1 tablet by mouth once daily multivitamin (multivitamin) per tablet Take 1 tablet by mouth daily . 0 Active oxyCODONE hydrochloride 5 mg oral tablet (20 sources) Opioid Agonist Start: 02-10-2020 End: 02-09-2021 take 1 tablet by mouth every four hours as needed for pain oxyCODONE (Roxicodone) 5 MG immediate release tablet Indications: Status post total bilateral knee replacement Take 1 (one) tablet (5 mg total) by mouth every 4 (four) hours as needed for pain . 40 tablet 0 02/10/2020 02/09/2021 Active Completed/Discontinued Medications Medication Drug Class(es) Dates Sig (Normalized) Sig (Original) acetaminophen 325 mg oral tablet (11 sources) Start: 01-07-2020 End: 01-17-2020 take 2 tablets by mouth every four hours acetaminophen (TYLENOL) 325 MG tablet Take 2 (two) tablets (650 mg total) by mouth every 4 (four) hours for 10 days . 30 tablet 0 01/07/2020 01/17/2020 Problems Problem Classification Problem Date Documented Date Episodic/Chronic Essential hypertension (1 source) Hypertensive disorder; Translations: [Hypertension, unspecified type] Chronic Osteoarthritis (20 sources) Primary gonarthrosis, bilateral; Translations: [Primary osteoarthritis of both knees] Onset: 10-16-2019 10-16-2019 Chronic Osteoarthritis (4 sources) Osteoarthritis of left knee joint; Translations: [Osteoarthritis of right knee joint] Other connective tissue disease (20 sources) History of total knee arthroplasty; Translations: [Status post total knee replacement, bilateral] Onset: 01-06-2020 01-06-2020 Chronic Results Test Name Value Interpretation Reference Range Facil ity Vital Signs Date Time Vital Sign Value Performing Clinician Faci lity 01-24-2020 10:29-0500 Body Temperature 97.7 [degF] [facility] 01-24-2020 10:29-0500 BP Diastolic 78 mm[Hg] [facility] 01-24-2020 10:29-0500 BP Systolic 145 mm[Hg] [facility] 01-24-2020 10:29-0500 Pulse (Heart Rate) 88 /min [facility] 01-24-2020 10:29-0500 Pulse Oximetry 98 % [facility] 01-24-2020 10:29-0500 Respiratory Rate 17 /min [facility] 01-22-2020 19:26-0500 Body Temperature 98.01 [degF] [facility] 01-22-2020 19:26-0500 BP Diastolic 78 mm[Hg] [facility] 01-22-2020 19:26-0500 BP Systolic 145 mm[Hg] [facility] 01-22-2020 19:26-0500 Pulse (Heart Rate) 71 /min [facility] 01-22-2020 19:26-0500 Pulse Oximetry 98 % [facility] 01-22-2020 19:26-0500 Respiratory Rate 17 /min [facility] 01-21-2020 10:56-0500 Body Temperature 98.2 [degF] [facility] 01-21-2020 10:56-0500 BP Diastolic 80 mm[Hg] [facility] 01-21-2020 10:56-0500 BP Systolic 154 mm[Hg] [facility] 01-21-2020 10:56-0500 Pulse ([facility] Rate) 82 /[facility] 10:56-0500 Pulse Oximetry 98 % [facility] 01-21-2020 10:56-0500 Respiratory Rate 16 /min [facility] 01-20-2020 11:22-0500 Body Temperature 98.01 [degF] [facility] 01-20-2020 11:22-0500 BP Diastolic 77 mm[Hg] [facility] 01-20-2020 11:22-0500 BP Systolic 132 mm[Hg] [facility] 01-20-2020 11:22-0500 Pulse (Heart Rate) 71 /min [facility] 01-20-2020 11:22-0500 Pulse Oximetry 98 % [facility] 01-20-2020 11:22-0500 Respiratory Rate 18 /min [facility] 01-16-2020 10:04-0500 Body Temperature 98.8 [degF] [facility] 01-16-2020 10:04-0500 BP Diastolic 80 mm[Hg] [facility] 01-16-2020 10:04-0500 BP Systolic 140 mm[Hg] [facility] 01-16-2020 10:04-0500 Pulse (Heart Rate) 71 /min [facility] 01-16-2020 10:04-0500 Pulse Oximetry 98 % [facility] 01-16-2020 10:04-0500 Respiratory Rate 16 /min [facility] 01-15-2020 09:43-0500 Body Temperature 97.7 [degF] [facility] 01-15-2020 09:43-0500 BP Diastolic 85 mm[Hg] [facility] 01-15-2020 09:43-0500 BP Systolic 153 mm[Hg] [facility] 01-15-2020 09:43-0500 Pulse (Heart Rate) 97 /min [facility] 01-15-2020 09:43-0500 Pulse Oximetry 98 % [facility] 01-15-2020 09:43-0500 Respiratory Rate 17 /min [facility] 01-14-2020 09:46-0500 Body Temperature 98.01 [degF] [facility]-14[facility]2020 09:46-0500 BP Diastolic 80 mm[Hg] Brenna Ari [facility] 01-14-2020 09:46-0500 BP Systolic 140 mm[Hg] Brenna Ari [facility] 01-14-2020 09:46-0500 Pulse (Heart Rate) 80 /min [facility] 01-14-2020 09:46-0500 Pulse Oximetry 98 % [facility] 01-14-2020 09:46-0500 Respiratory Rate 16 /min [facility] 01-13-2020 10:40-0500 Body Temperature 98.01 [degF] [facility] 01-13-2020 10:40-0500 BP Diastolic 87 mm[Hg] [facility] 01-13-2020 10:40-0500 BP Systolic 160 mm[Hg] [facility] 01-13-2020 10:40-0500 Pulse (Heart Rate) 78 /min [facility] 01-13-2020 10:40-0500 Pulse Oximetry 96 % [facility] 01-13-2020 10:40-0500 Respiratory Rate 17 /min [facility] 01-09-2020 09:12-0500 Body Temperature 97.59 [degF] [facility] 01-09-2020 09:12-0500 BP Diastolic 65 mm[Hg] [facility] 01-09-2020 09:12-0500 BP Systolic 100 mm[Hg] [facility] 01-09-2020 09:12-0500 Pulse (Heart Rate) 67 /min [facility] 01-09-2020 09:12-0500 Pulse Oximetry 97 % [facility] 01-09-2020 09:12-0500 Respiratory Rate 17 /min [facility] 01-08-2020 15:18-0500 BMI (Body Mass Index) 29.35 kg/m2 Brenna Chapman [facility] 01-08-2020 15:18-0500 Body Temperature 98.6 [degF] Brenna Chapman [facility] 01-08-2020 15:18-0500 Body weight 87.54 kg Brenna Chapman [facility] 01-08-2020 15:18-0500 BP Diastolic 78 mm[Hg] Brenna Chapman [facility] 01-08-2020 15:18-0500 BP Systolic 158 mm[Hg] Brenna Chapman [facility] 01-08-2020 15:18-0500 Height 172.7 cm Brenna Chapman [facility] 01-08-2020 15:18-0500 Pulse (Heart Rate) 90 /min Brenna Chapman [facility] 01-08-2020 15:18-0500 Pulse Oximetry 92 % Brenna Chapman [facility] 01-08-2020 15:18-0500 Respiratory Rate 16 /min Brenna Chapman [facility] 01-07-2020 14:27-0500 Respiratory Rate 16 /min Yolanda Day [facility] 01-07-2020 10:50-0500 BP Diastolic 82 mm[Hg] Yolanda Day [facility] 01-07-2020 10:50-0500 BP Systolic 138 mm[Hg] Yolanda Day [facility] 01-07-2020 10:50-0500 Pulse (Heart Rate) 59 /min Yolanda Day [facility] 01-07-2020 07:33-0500 Body Temperature 97.39 [degF] Yolanda Day [facility] 01-07-2020 07:33-0500 Pulse Oximetry 98 % Yolanda Day [facility] 01-06-2020 16:04-0500 BMI (Body Mass Index) 29.5 kg/m2 Yolanda Day [facility] 01-06-2020 16:04-0500 Body weight 88 kg Yolanda Day [facility] 01-06-2020 16:04-0500 Height 172.7 cm Yolanda Day [facility] 12-19-2019 07:59-0400 BMI (Body Mass Index) 30.41 kg/m2 [facility] 12-19-2019 07:59-0400 Body weight 90.72 kg [facility] 12-19-2019 07:59-0400 BP Diastolic 80 mm[Hg] [facility] 12-19-2019 07:59-0400 BP Systolic 125 mm[Hg] [facility] 12-19-2019 07:59-0400 Height 172.7 cm [facility] 12-19-2019 07:59-0400 Pulse (Heart Rate) 61 /min [facility] 12-19-2019 07:59-0400 Pulse Oximetry 97 % [facility] 10-10-2019 09:23-0400 BMI (Body Mass Index) 31.93 kg/m2 [facility] 10-10-2019 09:23-0400 Body weight 95.25 kg [facility] 10-10-2019 09:23-0400 Height 172.7 cm [facility] Encounters Encounter Date Encounter Type Care Provider Facility Start: 04-23-2020 End: 04-23-2020 Orders Only Jodi Macario Work Phone: [facility] Start: 03-23-2020 Patient encounter procedure EDUARDO DANIELS [facility] Start: 02-17-2020 End: 02-21-2020 Patient encounter procedure EDUARDO DANIELS [facility] Start: 02-17-2020 End: 02-17-2020 Postop follow up visit related to original px Yolanda Day Work Phone: [facility] Procedures Date Procedure Procedure Detail Performing Clinician Start: 01-07-2020 Basic metabolic 2000 panel - Serum or Plasma Yolanda Day Work Phone: Start: 01-07-2020 Hemoglobin and Hemat ocrit panel - Blood Yolanda Day Work Phone: Start: 01-06-2020 End: 01-06-2020 X-ray of left knee Yolanda Chongchristina richards Work Phone: Start: 01-06-2020 End: 01-06-2020 ARTHROPLASTY KNEE TOTAL ROBOTIC Yolanda Day Work Phone: Start: 12-19-2019 12 lead ECG Yolanda Sanchez Work Phone: Start: 12-19-2019 Basic metabolic 2000 panel - Serum or Plasma Yolanda Day Work Phone: Start: 12-19-2019 Complete blood count with white cell differential, automated Yolanda Day Work Phone: Start: 12-19-2019 Complete blood count with white cell differential, manual Yolanda Day Work Phone: Start: 12-19-2019 Methicillin resistan t Staphylococcus aureus [Presence] in Unspecified specimen by Organism specific culture Yolanda Day Work Phone: Start: 10-23-2019 Radiographic imaging procedure External Transcribed Start: 03-27-2006 Colonoscopy Galileo Garcia Plan of Treatment Date Care Activity Detail Author Start: 04-24-2027 Tetanus vaccination Tetanus: Every 10yrs [facility] Start: 2020 Pneumococcal vaccination Pneumococcal Vaccine Age 65+ (1 of 2 - PCV13) [facility] Start: 03-03-2020 End: 03-03-2020 Home Care Visit 03/03/2020 Home Care Visit Home Health Services Brenna Chapman RN [facility] Start: 02-25-2020 End: 02-25-2020 Home Care Visit 02/25/2020 Home Care Visit Home Health Services Brenna Chapman RN [facility] Start: 02-18-2020 End: 02-18-2020 Home Care Visit 02/18/2020 Home Care Visit Home Health Services Brenna Chapman RN [facility] Start: 02-14-2020 End: 02-14-2020 Follow-Up 02/14/2020 Follow-Up Sports Medicine Yolanda Day MD [address] [place] [address] [phone] [facility] Start: 02-11-2020 End: 02-11-2020 Home Care Visit 02/11/2020 Home Care Visit Home Health Services Brenna Chapman RN [facility] Start: 02-04-2020 End: 02-04-2020 Home Care Visit 02/04/2020 Home Care Visit Home Health Services Brenna Chapman RN [facility] Start: 01-28-2020 End: 01-28-2020 Home Care Visit 01/28/2020 Home Care Visit Home Health Services Brenna Chapman RN [facility] Start: 01-24-2020 End: 01-24-2020 Home Care Visit [facility] Start: 01-22-2020 End: 01-22-2020 Follow-Up [facility] Start: 01-21-2020 End: 01-21-2020 Home Care Visit 01/21/2020 Home Care Visit Home Health Services Brenna Chapman RN [facility] Start: 01-20-2020 End: 01-21-2020 Home Care Visit [facility] Start: 01-17-2020 End: 01-17-2020 Home Care Visit 01/17/2020 Home Care Visit Home Health Services Carlos Loza PTA [facility] Start: 01-15-2020 End: 01-15-2020 Home Care Visit 01/15/2020 Home Care Visit Home Health Services Carlos Loza PTA [facility] Start: 01-14-2020 End: 01-14-2020 Home Care Visit 01/14/2020 Home Care Visit Home Health Services Brenna Chapman RN [facility] Start: 01-14-2020 End: 01-14-2020 Home Care Visit 01/14/2020 Home Care Visit Home Health Services Brenna Chapman RN [facility] Start: 01-08-2020 End: 01-08-2020 Appointment 01/08/2020 Appointment Home Health Services Brenna Chapman RN [facility] Start: 01-06-2020 End: 01-06-2020 Hospital Encounter [facility] Payers Date Payer Category Payer Unknown [employer] RCIAL MISCELLANEOUS [id number] 1995-Present [id number] 1995 Unknown [id number] 1955 Unknown [id number] [id number] 1955 Unknown [id number] 2.16.840.1.393585.3.579.2.900 1955 Unknown [id number] 2.16.840.1.153283.3.579.2.903 1955 Unknown [id number] 2.16.840.1.244036.3.579.2.903 1955 Unknown [id number] 2.16.840.1.821489.3.579.2.903 1955 Unknown [id number] 2.16.840.1.531579.3.579.2.903 1955 Unknown [id number] 2.16.840.1.077989.3.579.2.903 1955 Unknown [id number] 2.16.840.1.925224.3.579.2.903 1955 Unknown [id number] 2.16.840.1.311249.3.579.2.903 1955 Unknown [id number] 2.16.840.1.468318.3.579.2.903 1955 Unknown [id number] 2.16.840.1.625964.3.579.2.903 1955 Unknown [id number] 2.16.840.1.377554.3.579.2.903 1955 Unknown [id number] 2.16.840.1.795295.3.579.2.903 1955 Unknown [id number] 2.16.840.1.510980.3.579.2.903 1955 Unknown [id number] 2.16.840.1.366088.3.579.2.903 1955 Unknown [id number] 2.16.840.1.187567.3.579.2.903 1955 Unknown [id number] 2.16.840.1.411410.3.579.2.903 1955 Unknown [id number] 2.16.840.1.246496.3.579.2.903 1955 Unknown [id number] 2.16.840.1.709615.3.579.2.903 1955 Unknown [id number] 2.16.840.1.265656.3.579.2.903 1955 Unknown [id number] 2.16.840.1.275126.3.579.2.903 1955 Unknown [id number] 2.16.840.1.237375.3.579.2.903 1955 Unknown [id number] 2.16.840.1.372120.3.579.2.903 Social History Date Type Detail Facility Start: 10-13-2019 End: 12-19-2019 Tobacco smoking status NHIS Former smoker [facility] Start: 10-13-2019 End: 12-19-2019 Tobacco use and exposure Current user [facility] Start: 10-13-2019 End: 12-19-2019 Alcohol intake Current drinker of alcohol (finding) [facility] Sex Assigned At Not on file [facility] Exposure to SARS-CoV -2 (event) Not sure [facility] Medical Equipment Procedure Code Equipment Code Equipment Origin al Text Equipment Identifier Dates Baseplate Sz4 Ti bial Tritanium Triathlon - [id number] ()[id number] [id number] , [id number]_[facility] FDA Start: 01-06-2020 Component Sz5 Fe m Cr Lt Cementless Beaded W/Pa Triathlon - [id number] ()[id number] [id number], 1152339_[facility] FDA Start: 01-06-2020 Insert Sz4-9 Tib ial Cr X3 Triathlon [id number] - [id number] ()[id number] [id number], 1152340_[facility] FDA Start: 01-06-2020 Patella 32mm Asymmetric Metal-Backed Tritanium Triathlon - [id number] ()[id number] [id number], [id number]_[facility] FDA Start: 01-06-2020 Component Sz4 Fe m Cr Rt Cementless Beaded W/Pa Triathlon - [id number] ()[id number] [id number], [id number]_imp FDA Start: 01-06-2020 Insert Sz4-9 Tib ial Cr X3 Triathlon [id number] - [id number] ()[id number] [id number], [id number]_imp FDA Start: 01-06-2020 Baseplate Sz4 Ti bial Tritanium Triathlon - [id number] ()[id number] [id number] , [id number]_imp FDA Start: 01-06-2020 Patella 32mm Asymmetric Metal-Backed Tritanium Triathlon - [id number] ()[id number] [id number], [id number]_imp FDA Start: 01-06-2020 Reason for Referral Status Reason Specialty Diagnoses / Procedures Referred By Contact Referred To Contact Authorized Specialty Services Required/[facility] Diagnoses Osteoarthritis of left knee, unspecified osteoarthritis type Osteoarthritis of right knee, unspecified osteoarthritis type Stefany Patel CNP [address] [place] [address] [facility] [place] [address] [place] [address] Status Reason Specialty Diagnoses / Procedures Referred By Contact Referred To Contact Closed Specialty Services Required/[facility] Diagnoses Status post total knee replacement, bilateral Yolanda Day MD [address] [place] [address] Status Reason Specialty Diagnoses / Procedures Referred By Contact Referred To Contact Authorized Patient Preference Physical Therapy Diagnoses Status post total bilateral knee replacement Yolanda Day MD [id number] OF SERVICE NOT IN SYSTEM History of Present Illness * Stefany Patel, JOSE ROBERTO - 10/13/2019 9:34 AM EDT Carla Yan 1955 CC: 64 y.o. is a he with bilateral knee pain. Chief Complaint Patient presents with Left Knee - Pain Right Knee - Pain . HPI: Knee Pain: Patient presents to the office with bilateral knee pain. He states that he has beenseen by another provider in [place] for his knee pain but is in search of a second opinion. He has had injections of cortisone and gel cushion but doesn't remember the exact name. He is not gettingany relief anymore. His knees hurt him all the time. He isn't able to do anything he enjoys. He is limited in life because of the knees. He continues to take OTC pain relievers as needed but again, it just doesn't help with the pain. His last injections were months ago. He was told that he needs knee replacements but that it wasn't possible to do both at the same time. He really wants to just do them both and then be able to get back to a normal life and have pain relief. He denies any instability of the knees. The right one is worse than the left. He did have a scope on the right knee years ago for a torn menisicus. PMH: No Known Allergies Current Outpatient Medications: allopurinoL (ZYLOPRIM) 300 MG tablet, Take 300 mg by mouth daily ., Disp: , Rfl: atorvastatin calcium (LIPITOR ORAL), Take by mouth ., Disp: , Rfl: Past Medical History: Diagnosis Date Broken bones Gout Hard of hearing Hyperlipidemia Numbness of arm Ringing in ears Sarcoidosis Shortness of breath on exertion Vision impairment Past Surgical History: Procedure Laterality Date CARPAL TUNNEL RELEASE Right 2004 CHOLECYSTECTOMY KNEE SURGERY Right OTHER SURGICAL HISTORY Sarcoidosis TESTICLE SURGERY Left Testicle Removed Social History Socioeconomic History Marital status: Spouse name: Not on file Number of children: Not on file Years of education: Not on file Highest education level: Not on file Occupational History Not on file Social Needs Financial resource strain: Not on file Food insecurity Worry: Not on file Inability: Not on file Transportation needs Medical: Not on file Non-medical: Not on file Tobacco Use Smoking status: Former Smoker Smokeless tobacco: Current User Tobacco comment: quit 2 years ago - 07/04/2013 Substance and Sexual Activity Alcohol use: Yes Alcohol/week: 10.0 standard drinks Types: 10 Standard drinks or equivalent per week Comment: 10 beers weekly Drug use: Not on file Sexual activity: Not on file Lifestyle Physical activity Days per week: Not on file Minutes per session: Not on file Stress: Not on file Relationships Social connections Talks on phone: Not on file Gets together: Not on file Attends faith service: Not on file Active member of club or organization: Not on file Attends meetings of clubs or organizations: Not on file Relationship status: Not on file Other Topics Concern Not on file Social History Narrative Not on file The patient's past medical history, surgical history, social history, family history, medications and allergies were reviewed with the patient today and are available in the chart for further review. ROS: Review of Systems Constitutional: Negative for activity change and fatigue. HENT: Negative for congestion, hearing loss and trouble swallowing. Eyes: Negative for visual disturbance. Respiratory: Negative for chest tightness and shortness of breath. Cardiovascular: Negative for chest pain and palpitations. Gastrointestinal: Negative for abdominal pain, diarrhea, nausea and vomiting. Endocrine: Negative for polydipsia, polyphagia and polyuria. Genitourinary: Negative for decreased urine volume, difficulty urinating and hematuria. Musculoskeletal: Positive for arthralgias. Negative for joint swelling and myalgias. Skin: Negative for color change, rash and wound. Allergic/Immunologic: Negative for immunocompromised state. Neurological: Negative for dizziness, weakness, light-headedness and numbness. Hematological: Does not bruise/bleed easily. Psychiatric/Behavioral: Negative for confusion and sleep disturbance. The patient is not nervous/anxious. PE: Physical Exam Constitutional: He is oriented to person, place, and time. He appears well- developed and well-nourished. HENT: Head: Normocephalic. Eyes: Pupils are equal, round, and reactive to light. Neck: Normal range of motion. Neck supple. Cardiovascular: Normal rate and regular rhythm. Pulmonary/Chest: Effort normal and breath sounds normal. Abdominal: Soft. Bowel sounds are normal. Musculoskeletal: General: Tenderness present. Right knee: He exhibits decreased range of motion. He exhibits no effusion. Tenderness found. Medial joint line and lateral joint line tenderness noted. Left knee: He exhibits no effusion. Tenderness found. Medial joint line and lateral joint line tenderness noted. Neurological: He is alert and oriented to person, place, and time. Skin: Skin is warm and dry. ORTHO: Right Knee Exam Tenderness The patient is experiencing tenderness in the lateral joint line and medial joint line. Range of Motion Extension: abnormal Flexion: normal Tests Romy: Medial - negative Lateral - negative Varus: negative Valgus: negative Thao: Anterior - negative Drawer: Anterior - negative Other Erythema: absent Scars: present Sensation: normal Pulse: present Swelling: none Effusion: no effusion present Left Knee Exam Tenderness The patient is experiencing tenderness in the medial joint line and lateral joint line. Range of Motion Extension: abnormal Flexion: normal Tests Romy: Medial - positive Lateral - negative Varus: negative Valgus: negative Thao: Anterior - negative Drawer: Anterior - negative Other Erythema: absent Scars: absent Sensation: normal Pulse: present Swelling: none Effusion: no effusion present Imaging: B/L Knees reviewed from [place] Moderate to severe degenerative changes in both knees, right greater than the left. No acute fracture or dislocation. Assessment/Plan: After examination and reviewing of the patient x-ray images, we discussed treatment options. At this time, the patient wants to move forward and have both knees replaced by Dr. Day. He would like to do this in the fall, more towards December. I did offer him another injection to the knees for pain and inflammation prior to his surgery but he declined stating that they just don't help and he doesn't want to waste money. I will start him in outpatient physical therapy and our office will contact him to scheduled his surgery. The patient verbalizes understanding and is in agreement with the treatment plan. I will be happy to see him back as needed prior to his surgery. Diagnosis: Problem List Items Addressed This Visit None Visit Diagnoses Osteoarthritis of left knee, unspecified osteoarthritis type - Primary Relevant Orders Ambulatory Ref to [facility] (PT/OT/ST) Osteoarthritis of right knee, unspecified osteoarthritis type Relevant Orders Ambulatory Ref to [facility] (PT/OT/ST) Follow Up: No follow-ups on file. Stefany Patel CNP documented in this encounter* Mitul Hassan, PT - 10/17/2019 7:45 AM EDT [facility] OUTPATIENT REHABILITATION Evaluation Today's Date 10/17/2019 Patient Name: Carla Yan Date of : 1955 Case Name: Bilateral Knee Pain Functional Diagnosis: 1. Osteoarthritis of left knee, unspecified osteoarthritis type 2. Osteoarthritis of right knee, unspecified osteoarthritis type Clinical Information: Subjective Referring Diagnosis: OA of Bilateral Knees Follow-up with physician: 12/27/2019 History of Present Illness Chief Complaint/ Mechanism of Injury: Pt reports c/o bilateral knee pain. Pt reports unknown mechanism of injury and denies trauma. Pt contributes sx to years of wear and tear. Pt reports h/o right knee arthroscopy. Pt denies numbness/tingling. Pt states he will be having a CT scan soon. Previous Treatment for this condition: Injections and Surgery Prior treatment effectiveness: moderate Previous Imaging: X-ray Status: worsening Pain Scale: Average Pain: 7/10 Pain at highest: 10/10 Aggravating factors: walking on uneven surfaces, bending/squatting Easing factors: Tylenol or Advil prn, ice 24 Hour Symptom Behavior Morning Pain: sudden End of day pain: worse Functional Status Functional Limitations: limited mobility Premorbid Functional Level: Patient reported and Independent with all ADLs/IADLs Current Functional Level: None Daily activity scale: low active Prior level of function: active Sleep Assessment Preferred sleep position: on side (pillow between the knees) Red Flags: None Barriers to Care: None Fall risk screening Fallen 2 or more times in the last 12 months: No Injured as a result of a fall in the last 12 months: No Personal Goals: Decrease pain and improve function Social History Occupation: Works as an auction and [employer] Home environment: steps with railing (single story home with basement) Christian, social, or cultural considerations to be made aware of before starting treatment: No Knee Right Knee Range of Motion: Flexion Active: 115 Extension Active: 0 Muscle Strength: Flexion: 5 Extension: 5 Special Tests Romy (Medial): Positive Romy (Lateral): Negative Stress Test (Varus): Negative Stress Test (Valgus): Negative Anterior Drawer: Negative Posterior Drawer: Negative Left Knee Range of Motion: Flexion Active: 112 Extension Active: 0 Muscle Strength Flexion: 5 Extension: 5 Special Tests Romy (Medial): Positive Romy (Lateral): Positive Stress Test (Varus): Negative Stress Test (Valgus): positive Anterior Drawer: Negative Posterior Drawer: Negative Joint Swelling (cm): Right Left Supra Patellar: 40.8 40.4 Infra Patellar: 36.6 37.4 Joint Line: 33.6 33.8 Treatments: Physical Therapy Exercise Log - 10/17/19 0827 OTHER Notes Visit 1: 7:55 - 8:22 Therapeutic Exercise (48411) Intervention Eval only - provided written HEP handouts consisting of HS and claf stretches, quad sets and SLR PT Treatment Times Total Treatment Time 27 Goals: Physical Therapy Ortho Goals: MOBILITY: Patient will be able to ambulate on uneven surfaces without difficulty in 4 weeks. MOBILITY: Patient will be able to ascend/descend stairs without difficulty in 4 weeks. IMPAIRMENT: Improve pain from 7/10 to <4/10 on average throughout the day in 4 weeks IMPAIRMENT: Improve AROM of Bilateral Knee Flexion to at least 120 degrees in 4 weeks. OTHER: Patient will be able to properly demonstrate independence with HEP in 2 weeks. CPT Code 11129 Low 36105 Moderate 71417 High History 0 1-2 3+ Comorbidities: prior surgical history and gout, Personal factors: chronicity or severity of the current condition Examination of body systems (elements of body structures & functions, activity limitations, and/or participation restrictions) 1-2 elements 3+ elements 4+ elements See below clinical impression Clinical Presentation Stable Evolving Unstable As evidenced by reproduction of or changes in symptoms with certain movements and pt report of overall worsening of symtpoms over time Decision Making Low (FOTO >/= 69) Moderate (FOTO 34 - 68) High (FOTO </= 33) Clinical Judgement Pt is a 64 y.o. male who presents to PT services with c/o bilateral knee pain. Upon assessment, pt has been found with the following impairments: decreased ROM, decreased strength and pain. The documented impairments result in the following functional limitations: functional mobility, walking, stairs, quality of life, bending and lifting for work/ADLs. The pt would benefit from skilled PT services focused on the above listed impairments and limitations in order to safely progress pt to their desired level of function. Pt to be discharged from OP PT services if/when goals are met, if they fail to make progress with conservative management in PT, if their level of progress plateaus, or if they do not maintain compliance with attendance or HEP. At this time, it is my clinical judgment that services are medically necessary. Plan of Care Frequency of Visits: 2 times per week Duration: 4 weeks Interventions: Therapeutic Exercise, Neuromuscular Re-Education, Manual Therapy, Therapeutic/ Functional Activities, Hot/Cold Pack and Vasopneumatic Rehab Potential: fair Suicide Screen Signs and Symptoms of Abuse/Neglect: No Actions Taken: No Suicide Risk: Does the patient feel like ending their life today?No Actions Taken: No Patient Education Provided Pt was educated on the benefits of therapy and importance of compliance with sessions and HEP for rehabilitation. Pt was also educated on treatment diagnosis, POC, and frequency/duration of treatment. Clinical Impression Pt would benefit from PT interventions for arthritis of the knees to address impairments in ROM, strength and stability as well as pain and swelling control. Mitul Hassan PT State License, [id number] documented in this encounter* Melo Garcia, GAY - 10/24/2019 7:45 AM EDT [facility] REH[facility]IL[facility]ATION DAILY TREATMENT NOTE Today's Date 10/24/2019 Patient Name: Carla Yan Date of : 1955 Current Visit #: 3 Authorized Visits: 12 Case Name: Bilateral Knee Pain History: Pre-Treatment Pain Scale: 1 Symptoms: stabilized Functional Diagnosis: 1. Primary osteoarthritis of both knees Clinical Information: Subjective: Pt reports some increased tenderness coming in today, states Objective Progressed wt with shuttle Reviewed foot placement with standing squat to reduce knee strain Treatments: Physical Therapy Exercise Log - 10/24/19 0746 OTHER Notes visit 3: 135-249 Therapeutic Exercise (32441) Intervention Eval only - provided written HEP handouts consisting of HS and claf stretches, quad sets and SLR Parameters quad sets x10 Intervention SLR x10 Parameters Sci fit 8' lv 2.5 Intervention shuttlle BLE 62# x20 U/L 37# x20 calf raise 37# x20 Parameters lateral step ups x10 6 Intervention HS curls GTB x20 Parameters heel slides x10 Intervention mini squats x20 PT Treatment Times Therex Total Time 33 Direct Treatment Time 33 Total Treatment Time 33 Goals: Physical Therapy Ortho Goals: MOBILITY: Patient will be able to ambulate on uneven surfaces without difficulty in 4 weeks. MOBILITY: Patient will be able to ascend/descend stairs without difficulty in 4 weeks. IMPAIRMENT: Improve pain from 7/10 to <4/10 on average throughout the day in 4 weeks IMPAIRMENT: Improve AROM of Bilateral Knee Flexion to at least 120 degrees in 4 weeks. OTHER: Patient will be able to properly demonstrate independence with HEP in 2 weeks. Patient Education: Verbal HEP with patient verbalized understanding. Post-Treatment Pain Scale: 1 Assessment: Patient had an expected response to treatment. Skilled Intervention demonstrated by modifications of treatment per exercise log including assessment of patient's response and safety interventions per exercise log. Progress towards goals as expected. Plan for Next Visit: Treatment Visit with focus on progressing as tolerated Melo Garcia PTA STATE LICENSE, [id number] documented in this encounter* Sloane Joyce PTA - 11/11/2019 7:45 AM EDT [facility] REHABIL[facility]ATION DAILY TREATMENT NOTE Today's Date 11/11/2019 Patient Name: Carla Yan Date of : 1955 Current Visit #: 6 Authorized Visits: 12 Case Name: Bilateral Knee Pain History: Pre-Treatment Pain Scale: 2 Symptoms: gradually improved Functional Diagnosis: 1. Primary osteoarthritis of both knees Clinical Information: Subjective: His knees always hurt like a toothache but more pain with more activity. Objective Quick fatigue with lateral and monster steps. Good eccentric quad control with CKC PRE's. Treatments: Physical Therapy Exercise Log - 11/11/19 0912 OTHER Notes visit 6: 7:46-8:25 Therapeutic Exercise (87159) Parameters quad sets Intervention SLR Parameters Sci fit 8' lv 3 Intervention shuttlle BLE 75# x10 U/L 37# x20 calf raise 37# x20 Parameters lateral step ups x20 6 Intervention mini squats x20 on bosu Parameters BOSU lunges x20 alt Intervention steamboats L3 x10 bilat. Parameters lateral side steps/monster steps RTB 2 full laps PT Treatment Times Therex Total Time 35 Direct Treatment Time 35 Total Treatment Time 35 Goals: Physical Therapy Ortho Goals: MOBILITY: Patient will be able to ambulate on uneven surfaces without difficulty in 4 weeks. MOBILITY: Patient will be able to ascend/descend stairs without difficulty in 4 weeks. IMPAIRMENT: Improve pain from 7/10 to <4/10 on average throughout the day in 4 weeks IMPAIRMENT: Improve AROM of Bilateral Knee Flexion to at least 120 degrees in 4 weeks. OTHER: Patient will be able to properly demonstrate independence with HEP in 2 weeks. Patient Education: Quality of movement with patient demonstrated understanding. Post-Treatment Pain Scale: 2 Assessment: Patient had an expected response to treatment. Skilled Intervention demonstrated by modifications of treatment per exercise log including increased intensity and safety interventions per exercise log. Progress towards goals as expected. Plan for Next Visit: Treatment Visit with focus on strengthening Sloane Joyce PTA STATE LICENSE, [id number] documented in this encounter* Mitul Hassan, PT - 11/13/2019 7:45 AM EDT [facility] OUTPATIENT REHABILITATION DAILY TREATMENT NOTE Today's Date 11/13/2019 Patient Name: Carla Yan Date of : 1955 Current Visit #: 7 Authorized Visits: 12 Case Name: Bilateral Knee Pain History: Pre-Treatment Pain Scale: 3 Symptoms: stabilized Functional Diagnosis: 1. Primary osteoarthritis of both knees Clinical Information: Subjective: Pt denies change in med hx. Pt reports experiencing increased pain following progression of therex last session. Pt reports continued constant pain but states pain levels are low unless he moves the wrong way or over-does it. Objective Knee Right Knee Range of Motion: Flexion Active: 120 Extension Active: 0 Muscle Strength: Flexion: 5 Extension: 5 Left Knee Range of Motion: Flexion Active: 120 Extension Active: 0 Muscle Strength Flexion: 5 Extension: 5 Treatments: Physical Therapy Exercise Log - 11/13/19 0734 OTHER Notes Visit 7:40 - 8:04 Therapeutic Exercise (58559) Intervention Sci fit 8' lv 3 Parameters standing calf and HS stretches 2x20 bilat. Intervention steamboats L3 x10 bilat. Parameters D/C assessment and education Intervention -- Parameters -- Intervention -- Parameters -- Intervention -- Parameters -- PT Treatment Times Therex Total Time 24 Direct Treatment Time 24 Total Treatment Time 24 Goals: Physical Therapy Ortho Goals: MOBILITY: Patient will be able to ambulate on uneven surfaces without difficulty in 4 weeks. MOBILITY: Patient will be able to ascend/descend stairs without difficulty in 4 weeks. IMPAIRMENT: Improve pain from 7/10 to <4/10 on average throughout the day in 4 weeks IMPAIRMENT: Improve AROM of Bilateral Knee Flexion to at least 120 degrees in 4 weeks. OTHER: Patient will be able to properly demonstrate independence with HEP in 2 weeks. Patient Education: Quality of movement and HEP Modification with patient verbalized understanding. Post-Treatment Pain Scale: 2 Assessment: Patient had an expected response to treatment. Skilled Intervention demonstrated by modifications of treatment per exercise log including assessment of patient's response and safety interventions per exercise log. Progress towards goals as expected. Plan: Discharge Mitul Hassan PT State License, [id number] documented in this encounter* Zainab Goodson RN - 01/07/2020 2:43 PM EST Pt given discharge instructions and joint camp goal sheet. Verbalizes understanding. * Yolanda Day MD - 01/07/2020 12:23 PM EST Orthopedic Total Knee Progress Note Assessment/Plan: Status Post bilateral Total Knee Arthroplasty: Doing well postoperatively. Discharge today, Return to Clinic: 2 weeks LOS: 1 day Subjective: Post-Operative Day: 1 Status Post bilateral Total Knee Arthroplasty Systemic or Specific Complaints:No Complaints Objective: Vital signs in last 24 hours: Temp: [97.1 F (36.2 C)-98.6 F (37 C)] 97.4 F (36.3 C) Heart Rate: [47-93] 59 Resp: [14-16] 16 BP: (118-159)/(60-82) 138/82 General: alert, appears stated age and cooperative Wound: Wound clean and dry no evidence of infection. Motion: Extension: Full Extension DVT Exam: No evidence of DVT seen on physical exam. Data Review CBC: Lab Results Component Value Date WBC 4.61 12/19/2019 RBC 4.62 12/19/2019 HGB 11.0 (L) 01/07/2020 HCT 33.0 (L) 01/07/2020 PLT 178 12/19/2019 documented in this encounter* Paula Reardon LPN - 01/13/2020 10:04 AM EST I spoke w Carla today and he tells me he is doing all right. He still has quite a bit of swelling, the left knee is worse, he is elevating the feet w ice on the knees. He did have some constipationbut that has improved, no nausea. He is taking 325mg ASA bid and 20mg Protonix every day. documented in this encounter* Yolanda Day MD - 02/17/2020 8:42 AM EST Dictation on: 02/17/2020 8:42 AM by: YOLANDA DAY [[id number]] documented in this encounter* Yolanda Dya MD - 01/22/2020 5:55 PM EST Dictation on: 01/22/2020 5:56 PM by: YOLANDA DAY [[id number]] documented in this encounter* Mitul Hassan, PT - 10/28/2019 7:45 AM EDT [facility] OUTPATIENT REHABILITATION DAILY TREATMENT NOTE Today's Date 10/28/2019 Patient Name: Carla Yan Date of : 1955 Current Visit #: 4 Authorized Visits: 12 Case Name: Bilateral Knee Pain History: Pre-Treatment Pain Scale: 3 Symptoms: gradually improved Functional Diagnosis: 1. Primary osteoarthritis of both knees Clinical Information: Subjective: Pt denies change in med hx. Pt reports some tenderness in the left medial knee this morning and reports having a lot of pain yesterday from being active all weekend. Objective Progressed dynamic strength/stability with BOSU lunges and steamboats. Pt tolerated treatment well and reports no increase in pain during or following treatment. Treatments: Physical Therapy Exercise Log - 10/28/19 0748 OTHER Notes Visit 4: 7:48 - 8:26 Therapeutic Exercise (75953) Parameters quad sets x15 Intervention SLR 2x10 Parameters Sci fit 8' lv 3 Intervention shuttlle BLE 62# x20 U/L 37# x20 calf raise 37# x20 Parameters lateral step ups x10 6 Intervention mini squats x20 Parameters BOSU lunges x20 alt Intervention steamboats L3 x10 bilat. PT Treatment Times Therex Total Time 38 Direct Treatment Time 38 Total Treatment Time 38 Goals: Physical Therapy Ortho Goals: MOBILITY: Patient will be able to ambulate on uneven surfaces without difficulty in 4 weeks. MOBILITY: Patient will be able to ascend/descend stairs without difficulty in 4 weeks. IMPAIRMENT: Improve pain from 7/10 to <4/10 on average throughout the day in 4 weeks IMPAIRMENT: Improve AROM of Bilateral Knee Flexion to at least 120 degrees in 4 weeks. OTHER: Patient will be able to properly demonstrate independence with HEP in 2 weeks. Patient Education: Diagnosis and recovery specific education with patient verbalized understanding. Post-Treatment Pain Scale: 2 Assessment: Patient had an expected response to treatment. Skilled Intervention demonstrated by modifications of treatment per exercise log including increased intensity and safety interventions per exercise log. Progress towards goals as expected. Plan for Next Visit: Treatment Visit with focus on strength and stability Mitul Hassan PT State License, [id number] documented in this encounter* Melo Garcia, FRAME OPERATOR - 11/06/2019 7:45 AM EDT [facility] OUTPATIENT REHABILITATION DAILY TREATMENT NOTE Today's Date 11/06/2019 Patient Name: Carla Yan Date of : 1955 Current Visit #: 5 Authorized Visits: 12 Case Name: Bilateral Knee Pain History: Pre-Treatment Pain Scale: 1 Symptoms: stabilized Functional Diagnosis: 1. Primary osteoarthritis of both knees Clinical Information: Subjective: Pt reports min pain coming in today, he had some pain on Monday Objective Focused on CKC and wbing ex's today Increased wt with shuttle Increased reps with step ups Added lat amb Treatments: Physical Therapy Exercise Log - 11/06/19 0746 OTHER Notes Visit 5: [phone] Therapeutic Exercise (06850) Parameters quad sets Intervention SLR Parameters Sci fit 8' lv 3 Intervention shuttlle BLE 75# x10 U/L 37# x20 calf raise 37# x20 Parameters lateral step ups x20 6 Intervention mini squats x20 Parameters BOSU lunges x20 alt Intervention steamboats L3 x10 bilat. Parameters Sink on airex x10 PT Treatment Times Therex Total Time 36 Direct Treatment Time 36 Total Treatment Time 36 Goals: Physical Therapy Ortho Goals: MOBILITY: Patient will be able to ambulate on uneven surfaces without difficulty in 4 weeks. MOBILITY: Patient will be able to ascend/descend stairs without difficulty in 4 weeks. IMPAIRMENT: Improve pain from 7/10 to <4/10 on average throughout the day in 4 weeks IMPAIRMENT: Improve AROM of Bilateral Knee Flexion to at least 120 degrees in 4 weeks. OTHER: Patient will be able to properly demonstrate independence with HEP in 2 weeks. Patient Education: Verbal HEP with patient verbalized understanding. Post-Treatment Pain Scale: 1 Assessment: Patient had an expected response to treatment. Pt had some increased medial knee pain with unstable surfaces Skilled Intervention demonstrated by modifications of treatment per exercise log including assessment of patient's response and safety interventions per exercise log. Progress towards goals as expected. Plan for Next Visit: Treatment Visit with focus on progressing as tolerated Melo Garcia PTA STATE LICENSE, [id number] documented in this encounter* Sloane Joyce, GAY - 10/21/2019 10:00 AM EDT [facility] OUTPATIENT REHABILITATION DAILY TREATMENT NOTE Today's Date 10/21/2019 Patient Name: Carla Yan Date of : 1955 Current Visit #: 2 Authorized Visits: 12 Case Name: Bilateral Knee Pain History: Pre-Treatment Pain Scale: 2 Symptoms: gradually improved Functional Diagnosis: 1. Primary osteoarthritis of both knees Clinical Information: Subjective: his knees are sore but he wants to get them stronger. Objective No sx increase with exercises. Good eccentric quad control with CKC PRE's. Treatments: Physical Therapy Exercise Log - 10/21/19 1119 OTHER Notes visit 2: 10:02-10:32 Therapeutic Exercise (10681) Intervention Eval only - provided written HEP handouts consisting of HS and claf stretches, quad sets and SLR Parameters quad sets x10 Intervention SLR x10 Parameters Sci fit 8' lv 2.5 Intervention shuttlle BLE 50# x20 U/L 37# x20 calf raise 37# x20 Parameters lateral step ups x10 6 Intervention HS curls GTB x20 Parameters heel slides x10 Intervention mini squats x20 PT Treatment Times Therex Total Time 30 Direct Treatment Time 30 Total Treatment Time 30 Goals: Physical Therapy Ortho Goals: MOBILITY: Patient will be able to ambulate on uneven surfaces without difficulty in 4 weeks. MOBILITY: Patient will be able to ascend/descend stairs without difficulty in 4 weeks. IMPAIRMENT: Improve pain from 7/10 to <4/10 on average throughout the day in 4 weeks IMPAIRMENT: Improve AROM of Bilateral Knee Flexion to at least 120 degrees in 4 weeks. OTHER: Patient will be able to properly demonstrate independence with HEP in 2 weeks. Patient Education: Quality of movement with patient demonstrated understanding. Post-Treatment Pain Scale: 1 Assessment: Patient had an expected response to treatment. Skilled Intervention demonstrated by modifications of treatment per exercise log including increased load and safety interventions per exercise log. Progress towards goals as expected. Plan for Next Visit: Treatment Visit with focus on strengthening Sloane Joyce PTA STATE LICENSE, [id number] documented in this encounter Assessments Diagnosis Osteoarthritis of left knee, unspecified osteoarthritis type- Primary Osteoarthritis of right knee, unspecified osteoarthritis type Diagnosis Primary osteoarthritis of both knees- Primary Osteoarthritis of left knee, unspecified osteoarthritis type Osteoarthritis of right knee, unspecified osteoarthritis type Primary osteoarthritis of both knees Diagnosis Primary osteoarthritis of both knees- Primary Primary osteoarthritis of both knees Diagnosis Primary osteoarthritis of both knees- Primary Primary osteoarthritis of both knees Diagnosis Primary osteoarthritis of both knees- Primary Status post total knee replacement, bilateral Diagnosis Status post total bilateral knee replacement- Primary Diagnosis Status post total bilateral knee replacement- Primary Diagnosis Status post total bilateral knee replacement- Primary Diagnosis Primary osteoarthritis of both knees- Primary Primary osteoarthritis of both knees Diagnosis Status post total knee replacement, bilateral- Primary Diagnosis Primary osteoarthritis of both knees Hypertension, unspecified type Advance Directives Documents on File Type Date Recorded Patient Tree Chipper Expl anation Advance Directives and Living Will Documents on File Type Date Recorded Patient Tree Chipper Expl anation Advance Directives and Livin g Will 10/17/2019 7:51 AM Documents on File Type Date Recorded Patient Tree Chipper Expl anation Advance Directives and Livin g Will 12/19/2019 12:00 AM Latest Code Status on File Code Status Date Activated Date Inactivated Comments Full Code 01/06/2020 2:37 PM 01/07/2020 5:10 PM Documents on File Type Date Recorded Patient Tree Chipper Expl anation Advance Directives and Livin g Will 12/19/2019 12:00 AM Latest Code Status on File Code Status Date Activated Date Inactivated Comments Full Code 01/06/2020 2:37 PM 01/07/2020 5:10 PM Summary Purpose Family History No Family History Records FoundNo Family History Records FoundNo Family History Records FoundNo Family History Records Found Discharge Instructions * Attachments The following attachments cannot be sent through Care Everywhere. * TKR (Total Knee Replacement): Post-op (Turkmen) documented in this encounter Instructions * Patient Instructions* Sharlene Ahuja CNP - 12/19/2019 8:10 AM EDT Preoperative Medication Instructions In preparation for surgery please continue all of your current medications with the following changes: Carla Yan Home Medication Instructions Prior to Surgery CHRISTINA:[id number] Printed on:12/19/19 7915 Medication Information Take last dose on Take the morning of surgery Comment(s) allopurinoL (ZYLOPRIM) 300 MG tablet Take 300 mg by mouth daily . Day prior to surgery ascorbic acid, vitamin C, (ascorbic acid with merari hips) 500 MG tablet Take 500 mg by mouth daily . 14 days prior to surgery atorvastatin calcium (LIPITOR ORAL) Take by mouth . Day prior to surgery multivitamin (multivitamin) per tablet Take 1 tablet by mouth daily . 14 Days prior to surgery STOP ( medications that contain aspirin, such as Fiorella [place], Pepto-Bismol, Anacin), antiinflammatory medications such as Advil, Motrin, Ibuprofen, Naproxen, Aleve, Fiorella [place], Pepto-Bismol, Anacin, Diclofenac, Voltaren, Daypro, Etodolac, Ketoprofen, Piroxicam, Relafen, Nabumetone, etc. Also disc ontinue Vitamin C, Vitamin E, [place]-3 Fatty Acid, Fish Oil or Lovaza, and all herbal medications ASDIRECTED BY SURGEON. Tylenol (acetaminophen) is acceptable(unless you have an allergy to this medication ), but be careful to follow the label directions and do not use with other pain medications. On the morning of surgery, with as little water as possible, ONLY take the medications listed abovein the column Take the morning of surgery. If you are using Eye Drops or Inhalers, please bring them to the hospital. Patient Instructions for [facility]: Prior to surgery: Surgeon's office will contact you with the scheduled time of your surgery. You may use the [employer] parking available at the Main Entrance One family member may accompany you back into the Pre-Op Area. Do not eat or drink anything after midnight or as directed, including gum, mints, and cough drops. No smoking after midnight. No alcohol 24 hours prior to your surgery. Please take any medications you have been instructed to take the morning of your surgery with smallsips of water. Please be sure to wear comfortable, appropriate clothing. Please remove all jewelry and piercing's, including wedding rings. Leave all valuable items at home. Shower using anti-bacterial soap or as advised by your Surgeon's office Do not apply any makeup or lotions. Remove all nail indonesian for surgeries involving extremities. Please remember to bring both your insurance card and a photo ID with you on the day of surgery. After your surgery: If you are having outpatient surgery - you must have a licensed roll off driver to take you home. The expectation is that this roll off driver will remain at the hospital for the duration of your procedure. You are advised to have a family member with you for at least 24 hours after being under Anesthesia. If you have sleep apnea and have a CPAP/BIPAP device, please bring it with you the day of surgery. documented in this encounter Additional Source Comments Reason for Visit (unrecogniz ed section and content) Reason Comments Physical Therapy Status Reason Specialty Diagnoses / Procedures Referred By Contact Referred To Contact Authorized Specialty Services Required/Daxa ent's [facility] Rehabilitation Diagnoses Osteoarthritis of left knee, unspecified osteoarthritis type Osteoarthritis of right knee, unspecified osteoarthritis type Stefany Patel CNP [address] [place] [address] Rehab [place] [address] [facility] [place] [address] Status Reason Specialty Diagnoses / Procedures Re ferred By Contact Referred To Contact Diagnoses Primary osteoarthritis of both knees Primary osteoarthritis of both knees [M17.0] Procedures MD TOTAL KNEE ARTHROPLASTY MD CPTR-ASST SURGICAL NAVIGATION IMAGE-LESS Bilateral Total Knee Replacement Robotic Status Reason Specialty Diagnoses / Procedures Referre d By Contact Referred To Contact Reason Comments Difficulty Walking Status Reason Specialty Diagnoses / Procedures Referre d By Contact Referred To Contact Reason Comments Follow-up Reason Comments Suture / Staple Removal Wound Check Reason Onset Date Comments Medication Refill 01/09/2020 (unrecognized sect ion and content) No Status Records FoundNo Status Records FoundNo Status Records FoundNo Status Records Found INFORMATION SOURCE (unrecogn ized section and content) DATE CREATED AUTHOR AUTHOR'S ORGANIZ ATION 01/20/2020 [facility] DATE CREATED AUTHOR AUTHOR'S ORGANIZ ATION 01/29/2020 HomeHealth DATE CREATED AUTHOR AUTHOR'S ORGANIZ ATION 03/23/2020 [facility] [place] Yolanda Levy MD - 01/06/2020 11:09 AM Yolanda Ferreira MD - 12/28/2019 10:33 AM EDT H&P Notes (unrecognized sect ion and content) INTERVAL HISTORY AND PHYSICAL Patient Name: Carla Yan Admit Date: MR #: [id number] : 1955 The H&P has been reviewed and the patient has been examined. I concur with the findings of the H&P. There are no significant changes. It is appropriate to proceed with the planned procedure. Yolanda Day MD 01/06/2020 11:09 AM Comes in today for preoperative consultation regarding his bilateral knee degenerative arthrosis. He has been thinking about knee replacement for years. He is tired of it. He has tried pills, shots, physical therapy. He said this has been going on for a long period of time. This gentleman has tried all the treatments. He has had cortisone, went to [place], [place], got a second opinion and had Synvisc injections. Takes [id number] anti-inflammatories. He has had physical therapy, has had no relief of his pain and discomfort. This gentleman says he has had enough and he is ready for the surgical intervention. He says the knees pop, they crack, they swell, they hurt, they give out on him. He has tried everything in his mind and he has actually had a significant weight loss on the low carb diet. PAST MEDICAL HISTORY ALLERGIES To tetanus toxoid, statins. MEDICATIONS Include allopurinol, atorvastatin. ILLNESSES Include hypertension, high cholesterol. SURGERIES He has had knee arthroscopy, unilateral orchiectomy, carpal tunnel, tonsillectomy, cholecystectomy, Achilles tendon repair, left heart catheterization 05/29/2017, and the heart catheterization in 2018 was essentially normal. FAMILY HISTORY Of coronary artery disease and myocardial infarction. SOCIAL HISTORY He does not smoke. Does drink alcohol on a social basis. REVIEW OF SYSTEMS Joint pain, arthralgias, bilateral knee pain. X-ray examination reveals severe end-stage medial compartment and patellofemoral degenerative arthrosis with acquired genu varum deformity. PHYSICAL EXAM General: He is awake, alert and oriented x3. Chest: Clear. Heart: Has regular rate and rhythm. Abdomen: Benign, no carotid bruits are noted. Extremities: At this time his bilateral lower extremities neurologically intact with 2+ pulses. He has full range of motion of the ankles and hips. Knees have a significant varus knee stance, 5 degree flexion contracture, 115 degrees of knee flexion. No ligamentous instability. Mild knee effusion. Skin is intact without lesions. Head: Normocephalic. IMPRESSION 1.Severe bilateral knee genu varum. 2.Severe bilateral knee degenerative arthrosis. PLAN At this point in time, we will proceed with bilateral knee replacement. All risks, complications were discussed. At this time I have discussed all the treatment options with the patient, the patient part of the entire decision-making process. I informed him that we would be using a Kat total knee replacement system with Urbano robotic assistance. I discussed with the patient that while we practice appropriate precautions consistent with prevailing medical standards, any contact with any person in any setting at this time presents a risk of transmission and contraction of COVID-19. The patient was also informed that COVID-19 testing within 72 hours of the procedure will be required. The patient wishes to proceed. Mental health status was assessed. A narcotic review was performed. This patient does get routine oral cannabinoids from his primary care physician. Last medication was 11/20/2019. documented in this encounter Brendon Lopez, PT - 01/07/2020 10:07 AM Marlena Abel OT - 01/07/2020 9:41 AM Lizbet Stanley LISW - 01/07/2020 9:06 AM Candice Montaño LISW - 12/19/2019 9:28 AM EDT Consult Notes (unrecognized section and content) Physical Therapy PHYSICAL THERAPY EVALUATION NOTE Seen for PT evaluation only. D/c PT. Skilled Therapy Needs After Discharge Are Skilled Therapy Services Needed After Discharge: Yes Intensity of Skilled Therapy: 2-3 days per week Anticipated Duration of Skilled Therapy: Duration 7 - 10 days DME Recommendation: Wheeled walker(has) Rehab Potential: Good PT Caregiver Readiness Working toward discharge home: Yes Outcomes Measures Prior Function - Basic Mobility Raw Score: 24 Points Prior Function - Basic Mobility % Impaired: 0% functionally impaired AM-PAC - Basic Mobility Raw Score: 22 Points AM-PAC - Basic Mobility % Impaired: 25.02% functionally impaired Physical Therapy Assessment History: The following factors influence the patient's participation in the PT plan of care: Personal Factors: Limited Baseline Mobility Environmental Factors: Steps to enter home The following co-morbidities (from this admission or prior) influence the patient's participation in this plan of care: OA, yeny TKR's Number of History elements affecting this patient's PT plan of care: 1 to 2 Examination of Body Systems: The patient presents with: Musculoskeletal impairments: ROM. These impairments result in limitations of Gait, Stair-Climbing. These impairments result in restrictions of Household mobility, Community mobility, Work-related activities, Leisure activities. Number of Body Systems elements affecting this patient's PT plan of care: 1 to 2. Clinical Presentation: The patient's clinical presentation for this PT evaluation is evolving as evidenced by current PT documentation. Activity Tolerance Activity Tolerance: Tolerates 30 min acitivty with multiple rests Therapy Precautions Orthotic Devices: No Weight Bearing Status: X Bilateral LE: Wt bearing as tolerated General Rehab Precautions: Fall risk Balance Standing Balance - Static: (SBA) Bed Mobility Supine to Sit: Independent Sit to Supine: Independent Transfers Sit to Stand: Independent Case Monitor: Wheeled walker Gait/Locomotion Gait Assistance: Stand by assistance Assistive Device: Wheeled walker Distance: 200 Feet Pattern: R decreased step length, L decreased step length Stair Management Technique: Two rails, Step to pattern, Forwards Stair Management Assistance: Contact guard, Stand by assistance Number of Stairs: 4 Exercise Skilled Intervention: Seen for yeny TKR ex's in sitting and in supine. AROM in supine: R 0-85, L 0-100. Seen for one unit Rx time 15m of there ex in addition to PT evaluation. Home Living Type of Home: House Home Layout: One level, Able to live on main level with bedroom/bathroom(2 TALON w/o rail or 4 TALON with b/l rails at back.) Bathroom Shower/Tub: Walk-in shower Bathroom Toilet: Raised Bathroom Equipment: Shower chair, Toilet raiser Bathroom Accessibility: Accessible via walker Home Equipment: Wheeled Walker, Cane, Shipyard Painter Helper(crutches) Prior Level of Function Level of Larue: Independent with ADLs and functional transfers, Independent with homemaking with ambulation Lives With: Spouse Receives Help From: Family ADL Assistance: Independent Homemaking Assistance: Independent Vocational: animal technician employment Comments: Ambulates without a device and fully indep. Past Medical History: Diagnosis Date Arthritis Broken bones Gout Hard of hearing Hyperlipidemia Numbness of arm Ringing in ears Sarcoidosis Shortness of breath on exertion Vision impairment Past Surgical History: Procedure Laterality Date ARTHROPLASTY KNEE TOTAL ROBOTIC ASSISTED Bilateral 01/06/2020 Procedure: Bilateral Total Knee Replacement Robotic; Surgeon: Yolanda Day MD; Location: Main OR; Service: Ortho-Robotics CARPAL TUNNEL RELEASE Right 2004 CHOLECYSTECTOMY KNEE SURGERY Right OTHER SURGICAL HISTORY Sarcoidosis TESTICLE SURGERY Left Testicle Removed TONSILLECTOMY For complete objective data, detailed plan of care and patient education refer to: PT EVALUATION flow sheet, PT TREATMENT flow sheet, patient Plan of Care, Plan of Care progress note, and Patient Education. This note stands as the current Discharge Summary upon patient discharge from the hospital or completion of Physical Therapy Plan of Care. Occupational Therapy OCCUPATIONAL THERAPY EVALUATION NOTE Dx: b/l TKR 01/06/2020 Skilled Therapy Needs After Discharge Anticipate Resolution of Current Assessment Limitations Including: Pain Are Skilled Therapy Services Needed After Discharge: No DME Recommendation: (long handled shoe horn) DME Rationale: Patient's condition prevents him/her from accomplishing ADL without recommended equipment Rehab Potential: Excellent Outcomes Measures Prior Function Daily Activity: Raw Score: 24 Prior Function Daily Activity % Impaired: 0% functionally impaired AM-PAC Daily Activity: Raw Score: 22 AM-PAC Daily Activity % Impaired: 25.80% functionally impaired Occupational Therapy Assessment The patient's current functional participation deficits are LE dressing, home management, job duties. This reduced independence will limit their life roles of premorbid level individual. The patient's co morbidities do not affect patient performance in the above activities and roles. The performance deficits are a result of musculoskeletal impairment(s) in bilateral, lower extremity including acitvity tolerance, pain, problem solving, and knowledge deficit. The patient's home setup is a community manager, family / caregiver support is a community manager for return to prior level of function. The patient's education level is a community manager, compliance is a community manager, awareness of own capacity and performance is a community manager to return to prior level of function. During the assessment, minimal to moderate modification of task was required and were identified in the plan of care. This consultation required brief review of the medical and therapy history. Eval and tx only. Activity Tolerance Activity Tolerance: Tolerates 10 - 20 min activity with multiple rests Therapy Precautions Orthotic Devices: No Weight Bearing Status: X Bilateral LE: Wt bearing as tolerated General Rehab Precautions: Fall risk Cognition Overall Cognitive Status: Within Functional Limits Arousal/Alertness: Appropriate responses to stimuli Orientation Level: Oriented X4 Executive functioning: WFL Safety Judgment: Good awareness of safety precautions Problem Solving: Able to problem solve independently Attention: Attends to distracted environment Hearing Status: WFL Social Interaction: WFL ADL/IADL Feeding: Independent Grooming : Modified independence UE Dressing: Modified independence LE Dressing: Min, Increased time to complete, Use of adaptive equipment Toileting : Modified independence Bed Mobility NT Functional Transfers Sit to Stand: Modified independence Toilet Transfers: Modified Larue Home Living Type of Home: House Home Layout: One level, Able to live on main level with bedroom/bathroom(2 TALON w/o rail or 4 TALON with b/l rails at back.) Bathroom Shower/Tub: Walk-in shower Bathroom Toilet: Raised Bathroom Equipment: Shower chair, Toilet raiser Bathroom Accessibility: Accessible via walker Home Equipment: Wheeled Walker, Cane, Shipyard Painter Helper(crutches) Prior Level of Function Level of Larue: Independent with ADLs and functional transfers, Independent with homemaking with ambulation Lives With: Spouse Receives Help From: Family ADL Assistance: Independent Homemaking Assistance: Independent Vocational: animal technician employment Comments: Ambulates without a device and fully indep. Past Medical History: Diagnosis Date Arthritis Broken bones Gout Hard of hearing Hyperlipidemia Numbness of arm Ringing in ears Sarcoidosis Shortness of breath on exertion Vision impairment Past Surgical History: Procedure Laterality Date CARPAL TUNNEL RELEASE Right 2004 CHOLECYSTECTOMY KNEE SURGERY Right OTHER SURGICAL HISTORY Sarcoidosis TESTICLE SURGERY Left Testicle Removed TONSILLECTOMY OCCUPATIONAL THERAPY TREATMENT NOTE Total Treatment Time (Total Session Time): 25 Minutes Timed Code Treatment Minutes: 11 Minutes Cognitive Skills Development Skilled Intervention: Followed all commands with good carry-over with AE training. Self-Care / Home Management ADL/IADL Skilled Intervention: Patient able to doff/don socks, given extra time without use of AE. Initiated donning slip-on shoes, but unable to manage at back of shoe. Long handled shoe horn introduced and patient returned demo with SBA. Patient pleased with results and issued shoe horn for home use for max indep/safety. Therapeutic Activities Bed Mobility Skilled Intervention: Patient up in chair. Functional Transfers Skilled Intervention: WW adjusted for proper ht once shoes donned. Mod indep in room for functoinal mobility with WW and for transfers. No LOB noted. Was cautioned not to over due it physically. Patient voiced good understanding of icing and elevation of b/l LE's. For complete objective data, detailed plan of care and patient education refer to: OT EVALUATION flow sheet, OT TREATMENT flow sheet, patient Plan of Care, Plan of Care progress note, and Patient Education. This note stands as the current Discharge Summary upon patient discharge from the hospital or completion of Occupational Therapy Plan of Care. Associated Order(s): IP CONSULT TO CARE MANAGEMENT COMPLEX DISCHARGE Date: 01/07/2020 Time: 9:06 AM Patient Name: Carla Yan Date of : 1955 Sex: Male Patient participated in joint camp prior to his scheduled surgery with Dr. Day. He lives with his , Mary, in a 1 story home with 2 steps to enter. She will assist the patient after surgery. The patient's bedroom, bathroom, and laundry are all on the first floor. The bathroom has a walk-in shower, without grab bars or a seat. The commode is a handicap accessible height. The patient requested services from [facility] home care and a referral was made at that time. Care management drying oven attendant, Deirdre Toney, met with the patient this morning and confirmed the discharge plan has not changed. Notify home health care completed. Patient to return home at discharge with new services from [facility] care. GORDO Hardwick Discharge Planning Living Arrangements: Spouse/significant other Support Systems: Spouse/significant other, Children, Family members Assistance Needed: Denies Type of Residence: Private residence Prior to Admission Home Care Services: No [facility] Disposition D/C Disposition: Home Health Care Services Related to Current Admission?: Yes Agency/Destination: [facility] Care Needs : Home health care Same As Recommended : yes Options Reviewed: List provided Reason for Choice: Patient/Family preference documented in this encounter SIMPLE DISCHARGE Date: 12/19/2019 Time: 9:28 AM Patient Name: Carla Yan Date of : 1955 Sex: Male Discharge Planning Living Arrangements: Spouse/significant other Support Systems: Spouse/significant other Type of Residence: Private residence Prior to Admission Home Care Services: No Patient expects to be discharged to:: home Current Home Equipment: Wheeled walker, Hospital bed, Crutches Anticipated HME: None Anticipated Home Care Needs: Home health care Anticipated Facility Type: Home care Met with the patient during Joint Camp on 12/19/2019. The patient is scheduled to have bilateral knee replacement surgery with Dr. Day on 01/17/2020. He lives with his , Mary, in a 1 story home with 2 steps to enter. She will assist the patient after surgery. The patient's bedroom, bathroom, and laundry are all on the first floor. The bathroom has a walk-in shower, without grab bars or a seat. The commode is a handicap accessible height. The patient wants to have [facility] at discharge, a referral will be made. Verified patient s address and phone number. DARRIAN Lozano-S documented in this encounter Quick Note - Daisy Amin RN - 01/07/2020 2:50 PM ESTPlan of Care - Zainab Goodson RN - 01/07/2020 2:42 PM ESTPlan of Care - Bing Dai RN - 01/07/2020 2:29 AM EST Miscellaneous Notes (unrecog nized section and content) Seen by [place] to Home, reviewed AVS, verbalizes understanding, denies any further needs. Plan of care reviewed and completed. Problem: Pain Goal: Manage acute pain 01/07/2020225 by Bing Dai RN Outcome: Partially Met 01/07/2020224 by Bing Dai RN Outcome: Partially Met Note: Complains of bilateral knee pain s/p total bilateral knee replacements; patient relates that left knee pain is worse than right. Receiving scheduled Tylenol and Toradol. Oxy IR every 3 hours PRN for breakthrough pain. Goal: Reduced pain sensation 01/07/2020225 by Bing Dai RN Outcome: Partially Met Note: Ice pack to both knees every 6 hours and PRN to reduce pain and swelling. 01/07/2020224 by Bing Dai RN Outcome: Partially Met Goal: Achievement of comfort function goal 01/07/2020225 by Bing Dai RN Outcome: Partially Met 01/07/2020224 by Bing Dai RN Outcome: Partially Met Problem: Mobility - Impaired Goal: Able to achieve maximum mobility level 01/07/2020225 by Bing Dai RN Outcome: Partially Met Note: PT/OT consults in place. Patient out of bed this shift with nursing staff. Ambulated in room and tolerated well. 01/07/2020224 by Bing Dai RN Outcome: Partially Met Problem: Venous Thromboembolism, Risk of Goal: Absence of venous thromboembolism 01/07/2020225 by Bing Dai RN Outcome: Partially Met Note: AV foot pumps in use, patient compliant. Aspirin BID to prevent blood clots. 01/07/2020224 by Bing Dai RN Outcome: Partially Met Problem: Infection - Risk of, Urinary Catheter-Associated Urinary Tract Infection Goal: Absence of catheter associated urinary tract infection 01/07/2020225 by Bing Dai RN Outcome: Partially Met Note: Galvan catheter in place overnight s/p BKA. Will remove in the morning. Urine clear, yellow in color. 01/07/2020224 by Bing Dai RN Outcome: Partially Met Problem: Plan for Discharge Goal: Knowledge of discharge plan and instructions 01/07/2020225 by Bing Dai RN Outcome: Partially Met Note: Patient is from home with . Plans to return at discharge with [facility]. 01/07/2020224 by Bing Dai RN Outcome: Partially Met Problem: Falls, Risk of Goal: Absence of falls 01/07/2020225 by Bing Dai RN Outcome: Partially Met Note: Fall precautions in place. Patient alert and oriented, uses call light for assistance. Gait steady when up ambulating this shift. 01/07/2020224 by Bing Dai RN Outcome: Partially Met Problem: Infection - Risk of, Surgical Site Infection Goal: Absence of surgical site infection 01/07/2020225 by Bing Dai RN Outcome: Partially Met Note: Mepilex dressing dry and intact to both knees, no drainage present. Receiving IV ancef post-op to prevent infections. Encouraged use of IS. Afebrile. 01/07/2020224 by Bing Dai RN Outcome: Partially Met [facility] Utilization Review Notes ELECTIVE ADMISSION TEMPLATE DIAGNOSIS:Bilateral knee degenerative arthrosis. NEED FOR SURGERY:64-year-old gentleman with significant severe bilateral knee degenerative arthrosis, unresponsive to conservative measures. The patient at this point in time has exhausted conservative measures. For further details, see admission history and physical examination. He was explained all the risks and complications of surgery including, but not limited to, the risk of infection, bleeding, neurologic or vascular injury, possibility of deep venous thrombosis, pulmonary embolism, myocardial infarction, stroke, or even with surgery. Explained the possibilities of continued pain, stiffness, loss of range of motion, as well as the need for future surgery. We talked about the possibility of continued pain, stiffness, loss of range of motion, as well as the need for future surgery. Given all of all the options of anesthetic per Anesthesia, the patient consented for a spinal anesthetic. DATE OF PROCEDURE:01/06/20 PROCEDURE:Bilateral minimally invasive robotic-assisted total knee replacements. POST OP COMPLICATIONS: DISPOSITION: TBD POST OP Problem: Pain Goal: Manage acute pain Outcome: Partially Met Note: Patient and patients educated to medication regimen; verified understanding. Patient has Oxy IR available Q3H PRN for pain control. Problem: Mobility - Impaired Goal: Able to achieve maximum mobility level Outcome: Partially Met Note: Patient s/p bilateral knee replacement surgery. Problem: Venous Thromboembolism, Risk of Goal: Absence of venous thromboembolism Outcome: Partially Met Note: Bilateral TALHA Foot Pumps are on and working. Problem: Infection - Risk of, Urinary Catheter-Associated Urinary Tract Infection Goal: Absence of catheter associated urinary tract infection Outcome: Partially Met Note: Patient with galvan catheter in place. No s/s of infection at this time. Will continue to monitor. Problem: Plan for Discharge Goal: Knowledge of discharge plan and instructions Outcome: Partially Met Note: No discharge orders at this time. Patient is from home with and plans to return with [facility] once discharge criteria is met. Problem: Falls, Risk of Goal: Absence of falls Outcome: Partially Met Note: Fall precautions in place. Patient educated to use of call light for assistance. Patient has PT/OT orders. Dictation on: 01/06/2020 2:36 PM by: YOLANDA DAY [[id number]] Brief Post Operative Note Patient Name: Carla Yan : 1955 (64 y.o.) Date of Service: 01/06/2020 [facility]: [id number] Procedure(s): Bilateral Total Knee Replacement Robotic Pre-Operative Diagnoses: * Primary osteoarthritis of both knees [M17.0] Post-Operative Diagnoses: * Same as Pre-Op Diagnosis * Primary osteoarthritis of both knees [M17.0] Surgeon(s) and Role: * Yolanda Day MD - Primary Anesthesiologist: Miah Elliott MD PREDICTIVE MAINTENANCE TECHNICIAN: Eduardo Carolina CRNA Patent Prosecution Attorney: Natalie Gomez RN; Amanda Portillo RN Scrub Person: ST Darrian Scrub Person Assist: Sujata Ballesteros Credit Control Clerk: ST Lois Operative findings: djd Intra and immediate post-operative complications: none Type of anesthesia used: Spinal Estimated blood loss: 2 mL Estimated urine output: 600 mL Specimen(s): ID Type Source Tests Collected by Time Destination A : Bone Knee, Left TISSUE EXAM Yolanda Day MD 01/06/2020 1020 B : Bone Knee, Right TISSUE EXAM Yolanda Day MD 01/06/2020 1020 Implant(s): Implant Name Type Inv. Item Serial No. [employer] Lot No. LRB No. Used Action BASEPLATE SZ4 TIBIAL TRITANIUM TRIATHLON - [id number] BASEPLATE SZ4 TIBIAL TRITANIUM TRIATHLON KAT OR [id number] Left 1 Implanted COMPONENT SZ5 FEM CR LT CEMENTLESS BEADED W/PA TRIATHLON - [id number] COMPONENT SZ5 FEM CR LT CEMENTLESS BEADED W/PA TRIATHLON KAT OR [id number] Left 1 Implanted INSERT SZ4-9 TIBIAL CR X3 TRIATHLON 0814-[id number] - [id number] INSERT SZ4-9 TIBIAL CR X3 TRIATHLON [id number] KAT OR [id number] Left 1 Implanted PATELLA 32MM ASYMMETRIC METAL-BACKED TRITANIUM TRIATHLON - [id number] PATELLA 32MM ASYMMETRIC METAL-BACKED TRITANIUM TRIATHLON KAT OR [id number] Left 1 Implanted COMPONENT SZ4 FEM CR RT CEMENTLESS BEADED W/PA TRIATHLON - [id number] COMPONENT SZ4 FEM CR RT CEMENTLESS BEADED W/PA TRIATHLON KAT OR [id number] Right 1 Implanted INSERT SZ4-9 TIBIAL CR X3 TRIATHLON [id number] - [id number] INSERT SZ4-9 TIBIAL CR X3 TRIATHLON [id number] KAT OR [id number] Right 1 Implanted BASEPLATE SZ4 TIBIAL TRITANIUM TRIATHLON - [id number] BASEPLATE SZ4 TIBIAL TRITANIUM TRIATHLON KAT OR [id number] Right 1 Implanted PATELLA 32MM ASYMMETRIC METAL-BACKED TRITANIUM TRIATHLON - [id number] PATELLA 32MM ASYMMETRIC METAL-BACKED TRITANIUM TRIATHLON KAT OR [id number] Right 1 Implanted Drain(s): Urethral Catheter Double-lumen;Latex 16 Fr. (Active) Wound(s): Wound 01/06/20 Surgical Wound Leg Left (Active) Wound 01/06/20 Surgical Wound Leg Right (Active) Yolanda Day MD 01/06/2020 2:31 PM documented in this encounter Dr Day said ok to refill patient's pain medication. Surgery 01/05 b/l TKR documented in this encounter Patient established goals at joint camp Short term goals: Pain management, walking freely after week 3, return to work week 4 alf goal: Continued improvement, walk with no pain Bilateral knee range of motion at the time of joint camp is Left 2-125, and Right 1-126. Patient completed Home Safety Assessment on date of Joint Camp, with all questions answered. A copy of the assessment was offered at this time. Preoperative Medication Instructions In preparation for surgery please continue all of your current medications with the following changes: Carla Yan Home Medication Instructions Prior to Surgery CHRISTINA:[id number] Printed on:12/19/19805 Medication Information Take last dose on Take the morning of surgery Comment(s) allopurinoL (ZYLOPRIM) 300 MG tablet Take 300 mg by mouth daily . ascorbic acid, vitamin C, (ascorbic acid with merari hips) 500 MG tablet Take 500 mg by mouth daily . atorvastatin calcium (LIPITOR ORAL) Take by mouth . multivitamin (multivitamin) per tablet Take 1 tablet by mouth daily . STOP ( medications that contain aspirin, such as Fiorella [place], Pepto-Bismol, Anacin), antiinflammatory medications such as Advil, Motrin, Ibuprofen, Naproxen, Aleve, Fiorella [place], Pepto-Bismol, Anacin, Diclofenac, Voltaren, Daypro, Etodolac, Ketoprofen, Piroxicam, Relafen, Nabumetone, etc. Also discontinue Vitamin C, Vitamin E, [place]-3 Fatty Acid, Fish Oil or Lovaza, and all herbal medications DIRECTED BY SURGEON. Tylenol (acetaminophen) is acceptable(unless you have an allergy to this medication ), but be careful to follow the label directions and do not use with other pain medications. On the morning of surgery, with as little water as possible, ONLY take the medications listed above in the column Take the morning of surgery. If you are using Eye Drops or Inhalers, please bring them to the hospital. Patient Instructions for [facility]: Prior to surgery: Surgeon's office will contact you with the scheduled time of your surgery. You may use the [employer] parking available at the Main Entrance One family member may accompany you back into the Pre-Op Area. Do not eat or drink anything after midnight or as directed, including gum, mints, and cough drops. No smoking after midnight. No alcohol 24 hours prior to your surgery. Please take any medications you have been instructed to take the morning of your surgery with small sips of water. Please be sure to wear comfortable, appropriate clothing. Please remove all jewelry and piercing's, including wedding rings. Leave all valuable items at home. Shower using anti-bacterial soap or as advised by your Surgeon's office Do not apply any makeup or lotions. Remove all nail indonesian for surgeries involving extremities. Please remember to bring both your insurance card and a photo ID with you on the day of surgery. After your surgery: If you are having outpatient surgery - you must have a licensed roll off driver to take you home. The expectation is that this roll off driver will remain at the hospital for the duration of your procedure. You are advised to have a family member with you for at least 24 hours after being under Anesthesia. If you have sleep apnea and have a CPAP/BIPAP device, please bring it with you the day of surgery. documented in this encounter Visit Details Home Health Visit - Care Betsey n (unrecognized section and content) Visit Type -PT Non-OASIS/Dis cipl Discharge Discipline -Physical Therapy Problems Problem Start Date Status Goals Interventions AP02- Decreased Knowledge of Pain Management Disciplines: Physical Therapy 01/09/2020 Active 1 goal linked to scheduled/documented intervention 1 goal intervention scheduled/documented in this visit AP03- Decreased Knowledge of Edema Control Disciplines: Physical Therapy 01/09/2020 Active 1 goal linked to scheduled/documented intervention 1 goal intervention scheduled/documented in this visit Abnormal Findings Disciplines: Alf, Physical Therapy, Occupational Therapy, Speech Therapy, Home Health Aide, Medical Social Work, Spiritual Care, Art Therapy, Massage Therapy, Registered Dietitian, Student - Medical Social Work 01/08/2020 Active 1 goal linked to scheduled/documented intervention 1 goal intervention scheduled/documented in this visit PT11- Decreased ROM Disciplines: Physical Therapy 01/09/2020 Active 1 goal linked to scheduled/documented intervention 1 goal intervention scheduled/documented in this visit PT14- Decreased Strength Disciplines: Physical Therapy 01/09/2020 Active 1 goal linked to scheduled/documented intervention 1 goal intervention scheduled/documented in this visit PT16- Decreased knowledge of Home Exercise Program Disciplines: Physical Therapy 01/09/2020 Active 1 goal linked to scheduled/documented intervention 1 goal intervention scheduled/documented in this visit PT19- Decreased Transfer Ability Disciplines: Physical Therapy 01/09/2020 Active 1 goal linked to scheduled/documented intervention 1 goal intervention scheduled/documented in this visit PT20- Decreased Ambulation Ability Disciplines: Physical Therapy 01/09/2020 Active 1 goal linked to scheduled/documented intervention 1 goal intervention scheduled/documented in this visit PT23- Decreased Home Exit/Entry Ability Disciplines: Physical Therapy 01/09/2020 Active 1 goal linked to scheduled/documented intervention 1 goal intervention scheduled/documented in this visit PT24- Decreased Balance/Increased Fall Risk Disciplines: Physical Therapy 01/09/2020 Active 1 goal linked to scheduled/documented intervention 1 goal intervention scheduled/documented in this visit Risk of Falls Disciplines: Alf, Physical Therapy, Occupational Therapy, Speech Therapy, Home Health Aide, Medical Social Work, Spiritual Care, Art Therapy, Massage Therapy, Registered Dietitian, Student - Medical Social Work 01/08/2020 Active 1 goal linked to scheduled/documented intervention 1 goal intervention scheduled/documented in this visit Goals Goal Associated Problem Outcome Goal Met? Visit Notes Pain management education goal AP02- Decreased Knowledge of Pain Management No Edema education goal AP03- Decreased Knowledge of Edema Control No Assessment findings goal Abnormal Findings No Range of motion goal PT11- Decreased ROM No Strength PT Ortho goal PT14- Decreased Strength No HEP education goal PT16- Decreased knowledge of Home Exercise Program No Transfer goal PT19- Decreased Transfer Ability No Ambulation PT Ortho goal PT20- Decreased Ambulation Ability No Home exit/entry PT Ortho goal PT23- Decreased Home Exit/Entry Ability No Balance/Fall risk PT Ortho goal PT24- Decreased Balance/Increased Fall Risk No Balance/Fall risk goal Risk of Falls No Interventions Intervention Associated Problem/Goal Status Variance Visit Notes Assess/Instruct in pain management techniques and evaluate effectiveness. Problem:AP02- Decreased Knowledge of Pain Management Goal:Pain management education goal Scheduled Assess/Instruct in edema management techniques Problem:AP03- Decreased Knowledge of Edema Control Goal:Edema education goal Scheduled Report abnormal assessment to physician Problem:Abnormal Findings Goal:Assessment findings goal Scheduled Assess/Instruct in therapeutic exercises and perform manual techniques to improve functional ROM. Problem:PT11- Decreased ROM Goal:Range of motion goal Scheduled PT muscle re-education Problem:PT14- Decreased Strength Goal:Strength PT Ortho goal Scheduled PT establish or upgrade home program Problem:PT16- Decreased knowledge of Home Exercise Program Goal:HEP education goal Scheduled PT transfer training Problem:PT19- Decreased Transfer Ability Goal:Transfer goal Scheduled Assess/Instruct in safe gait techniques in home. Problem:PT20- Decreased Ambulation Ability Goal:Ambulation PT Ortho goal Scheduled Assess/Instruct in safe home exit/entry and community prepared mobility techniques Problem:PT23- Decreased Home Exit/Entry Ability Goal:Home exit/entry PT Ortho goal Scheduled Assess/Instruct in balance and fall prevention techniques Problem:PT24- Decreased Balance/Increased Fall Risk Goal:Balance/Fall risk PT Ortho goal Scheduled Instruct on fall prevention Problem:Risk of Falls Goal:Balance/Fall risk goal Scheduled Visit Details Visit Type -SN HH Routine Vi sit Discipline -Alf Problems Problem Start Date Status Goals Interventions Abnormal Findings Disciplines: Alf, Physical Therapy, Occupational Therapy, Speech Therapy, Home Health Aide, Medical Social Work, Spiritual Care, Art Therapy, Massage Therapy, Registered Dietitian, Student - Medical Social Work 01/08/2020 Active 1 goal linked to scheduled/documented intervention 1 goal intervention scheduled/documented in this visit Home Medication Management Disciplines: Alf 01/08/2020 Active 1 goal linked to scheduled/documented intervention 4 goal interventions scheduled/documented in this visit Learning/Teaching Needs - Joint Replacement Disciplines: Alf 01/08/2020 Active 1 goal linked to scheduled/documented intervention 6 goal interventions scheduled/documented in this visit Pain Management Disciplines: Alf 01/08/2020 Active 1 goal linked to scheduled/documented intervention 1 goal intervention scheduled/documented in this visit Risk of Falls Disciplines: Alf, Physical Therapy, Occupational Therapy, Speech Therapy, Home Health Aide, Medical Social Work, Spiritual Care, Art Therapy, Massage Therapy, Registered Dietitian, Student - Medical Social Work 01/08/2020 Active 1 goal linked to scheduled/documented intervention 1 goal intervention scheduled/documented in this visit Skilled Assessment Disciplines: Alf 01/08/2020 Active 1 goal linked to scheduled/documented intervention 4 goal interventions scheduled/documented in this visit Goals Goal Associated Problem Outcome Goal Met? Visit Notes Assessment findings goal Abnormal Findings No Medication management goal Home Medication Management No Post-op complication goal Learning/Teaching Needs - Joint Replacement No Pain management goal Pain Management No Balance/Fall risk goal Risk of Falls No Rehospitalization joint replacement goal Skilled Assessment No Interventions Intervention Associated Problem/Goal Status Variance Visit Notes Report abnormal assessment to physician Problem:Abnormal Findings Goal:Assessment findings goal Completed Instruct on high risk medications Problem:Home Medication Management Goal:Medication management goal Completed Review and identify unnecessary therapeutic duplication; cardiovascular medication problems related to dizziness; continued hyper/hypotension or low pulse; falls, dizziness, or confusion; and inappropriate use of non-steroidal anti-inflammatory drugs (NSAIDs). Medication box Problem:Home Medication Management Goal:Medication management goal Completed Skilled assessment medications Problem:Home Medication Management Goal:Medication management goal Completed Teach medication management Problem:Home Medication Management Goal:Medication management goal Completed Incision site care Problem:Learning/Tea michele Needs - Joint Replacement Goal:Post-op complication goal Completed Instruct diet Problem:Learning/Tea michele Needs - Joint Replacement Goal:Post-op complication goal Completed Instruct on constipation prevention Problem:Learning/Tea michele Needs - Joint Replacement Goal:Post-op complication goal Completed Instruct on management of immobility complications Problem:Learning/Tea michele Needs - Joint Replacement Goal:Post-op complication goal Completed Instruct on the prevention of deep vein thrombosis Problem:Learning/Tea michele Needs - Joint Replacement Goal:Post-op complication goal Completed Teach Problem:Learning/Tea michele Needs - Joint Replacement Goal:Post-op complication goal Completed Instruct on pain management techniques Problem:Pain Management Goal:Pain management goal Completed Instruct on fall prevention Problem:Risk of Falls Goal:Balance/Fall risk goal Completed Obtain pulse oximetry Problem:Skilled Assessment Goal:Rehospitalizati on joint replacement goal Completed SN/HAIR BOILER obtain vital signs Problem:Skilled Assessment Goal:Rehospitalizati on joint replacement goal Completed Teaching - disease process Problem:Skilled Assessment Goal:Rehospitalizati on joint replacement goal Completed Skilled observation and assessment general assessment Problem:Skilled Assessment Goal:Rehospitalizati on joint replacement goal Completed Visit Details Visit Type -SN Non-OASIS SOC Discipline -Alf Visit Details Visit Type -PT Initial Evalu ation Discipline -Physical Therapy Problems Problem Start Date Status Goals Interventions AP02- Decreased Knowledge of Pain Management Disciplines: Physical Therapy 01/09/2020 Active 1 goal linked to scheduled/documented intervention 1 goal intervention scheduled/documented in this visit AP03- Decreased Knowledge of Edema Control Disciplines: Physical Therapy 01/09/2020 Active 1 goal linked to scheduled/documented intervention 1 goal intervention scheduled/documented in this visit Abnormal Findings Disciplines: Alf, Physical Therapy, Occupational Therapy, Speech Therapy, Home Health Aide, Medical Social Work, Spiritual Care, Art Therapy, Massage Therapy, Registered Dietitian, Student - Medical Social Work 01/08/2020 Active 1 goal linked to scheduled/documented intervention 1 goal intervention scheduled/documented in this visit PT11- Decreased ROM Disciplines: Physical Therapy 01/09/2020 Active 1 goal linked to scheduled/documented intervention 1 goal intervention scheduled/documented in this visit PT14- Decreased Strength Disciplines: Physical Therapy 01/09/2020 Active 1 goal linked to scheduled/documented intervention 1 goal intervention scheduled/documented in this visit PT16- Decreased knowledge of Home Exercise Program Disciplines: Physical Therapy 01/09/2020 Active 1 goal linked to scheduled/documented intervention 1 goal intervention scheduled/documented in this visit PT19- Decreased Transfer Ability Disciplines: Physical Therapy 01/09/2020 Active 1 goal linked to scheduled/documented intervention 1 goal intervention scheduled/documented in this visit PT20- Decreased Ambulation Ability Disciplines: Physical Therapy 01/09/2020 Active 1 goal linked to scheduled/documented intervention 1 goal intervention scheduled/documented in this visit PT23- Decreased Home Exit/Entry Ability Disciplines: Physical Therapy 01/09/2020 Active 1 goal linked to scheduled/documented intervention 1 goal intervention scheduled/documented in this visit PT24- Decreased Balance/Increased Fall Risk Disciplines: Physical Therapy 01/09/2020 Active 1 goal linked to scheduled/documented intervention 1 goal intervention scheduled/documented in this visit Risk of Falls Disciplines: Alf, Physical Therapy, Occupational Therapy, Speech Therapy, Home Health Aide, Medical Social Work, Spiritual Care, Art Therapy, Massage Therapy, Registered Dietitian, Student - Medical Social Work 01/08/2020 Active 1 goal linked to scheduled/documented intervention 1 goal intervention scheduled/documented in this visit Goals Goal Associated Problem Outcome Goal Met? Visit Notes Pain management education goal AP02- Decreased Knowledge of Pain Management No Edema education goal AP03- Decreased Knowledge of Edema Control No Assessment findings goal Abnormal Findings No Range of motion goal PT11- Decreased ROM No Strength PT Ortho goal PT14- Decreased Strength No HEP education goal PT16- Decreased knowledge of Home Exercise Program No Transfer goal PT19- Decreased Transfer Ability No Ambulation PT Ortho goal PT20- Decreased Ambulation Ability No Home exit/entry PT Ortho goal PT23- Decreased Home Exit/Entry Ability No Balance/Fall risk PT Ortho goal PT24- Decreased Balance/Increased Fall Risk No Balance/Fall risk goal Risk of Falls No Interventions Intervention Associated Problem/Goal Status Variance Visit Notes Assess/Instruct in pain management techniques and evaluate effectiveness. Problem:AP02- Decreased Knowledge of Pain Management Goal:Pain management education goal Scheduled Assess/Instruct in edema management techniques Problem:AP03- Decreased Knowledge of Edema Control Goal:Edema education goal Scheduled Report abnormal assessment to physician Problem:Abnormal Findings Goal:Assessment findings goal Scheduled Assess/Instruct in therapeutic exercises and perform manual techniques to improve functional ROM. Problem:PT11- Decreased ROM Goal:Range of motion goal Scheduled PT muscle re-education Problem:PT14- Decreased Strength Goal:Strength PT Ortho goal Scheduled PT establish or upgrade home program Problem:PT16- Decreased knowledge of Home Exercise Program Goal:HEP education goal Scheduled PT transfer training Problem:PT19- Decreased Transfer Ability Goal:Transfer goal Scheduled Assess/Instruct in safe gait techniques in home. Problem:PT20- Decreased Ambulation Ability Goal:Ambulation PT Ortho goal Scheduled Assess/Instruct in safe home exit/entry and community prepared mobility techniques Problem:PT23- Decreased Home Exit/Entry Ability Goal:Home exit/entry PT Ortho goal Scheduled Assess/Instruct in balance and fall prevention techniques Problem:PT24- Decreased Balance/Increased Fall Risk Goal:Balance/Fall risk PT Ortho goal Scheduled Instruct on fall prevention Problem:Risk of Falls Goal:Balance/Fall risk goal Scheduled Visit Details Visit Type -FRAME OPERATOR Routine Visi t Discipline -Physical Therapy Interventions Intervention Associated Problem/Goal Status Variance Visit Notes Assess/Instruct in pain management techniques and evaluate effectiveness. Problem:AP02- Decreased Knowledge of Pain Management Goal:Pain management education goal Completed Educated patient with taking pain medication as needed and correct supine position to reduce pain with sleeping Assess/Instruct in edema management techniques Problem:AP03- Decreased Knowledge of Edema Control Goal:Edema education goal Completed Educated patient with importance of icing and elevation to B knee 3x a day for one hour to improve with comfort and reduce edema. Educated patient with importance of elevation and benefits patient will receive which will lead patient to reaching LTGs Report abnormal assessment to physician Problem:Abnormal Findings Goal:Assessment findings goal Completed Patient assessment findings are WNL for the patient BP, pulse, SpO2 and tempature Assess/Instruct in therapeutic exercises and perform manual techniques to improve functional ROM. Problem:PT11- Decreased ROM Goal:Range of motion goal Completed Supine AROM/PROM to B knee to increase with flexion and extension to improve with LRAD with gait and progress with safety in home when performing ADLs. Patient measured 0-95 degrees within R knee and 0-95 within L knee, patellar movement to improve with joint mobility and increase comfort with gait/transfers ability in home. Patient tolerated all manual ROM well with showing increase in soreness post tx PT muscle re-education Problem:PT14- Decreased Strength Goal:Strength PT Ortho goal Completed Supine strengthening exercise to > knee to progress with quad strength to improve with stair mobility in community and safety with exiting and entering home with LRAD. Patient needed cues with slowing with lalita and reaching full ROM to progress with benefit of strengthening exercise. Patient needed often rest breaks due to increase in soreness and fatigue within B quad and hamstring. PT establish or upgrade home program Problem:PT16- Decreased knowledge of Home Exercise Program Goal:HEP education goal Completed Reviewed HEP with patient and educated patient with importance of completing daily to reach LTGs and return to prior level of safety in home. Educated patient with importance of B knee flexion stretching to B knees PT transfer training Problem:PT19- Decreased Transfer Ability Goal:Transfer goal Completed Patient performed a variety of transfers from high and low surfaces in home with using rolator. Patient needed educated with anterior weight shift, progressing with wider JACQUES and pushing from elevated armrest to improve with safety and less assistance from therapist. Patient was SBA with all transfers in home with verbal cues on slowing with lalita and reaching back when sitting to redcue plopping. Progressing with form with all transfers in home will improve with safety and independence Assess/Instruct in safe gait techniques in home. Problem:PT20- Decreased Ambulation Ability Goal:Ambulation PT Ortho goal Completed Patient is ambulating in home with using rolator and OK at all times. Challenged patient with stepping over and around objects in home to improve with safety and stability in community with reducing assistance from family. Educated patient with importance of good posture and breathing pattern to improve with gait duration and efficiency. Patient was challenged with ambulating on variety of surfaces in home to improve with safety outside of home. Patient was able to ambulate for 3-5 minutes before needing a rest break due to fatigue and weakness within BLE with showing increase in SOB with elevating HR to 101bmp. Patient needed educated with staying within AD and progressing with B knee flexion with lengthening stride to normalize gait pattern Assess/Instruct in safe home exit/entry and community prepared mobility techniques Problem:PT23- Decreased Home Exit/Entry Ability Goal:Home exit/entry PT Ortho goal Completed not test this date due to increase in fatigue from tx and will address next visit Assess/Instruct in balance and fall prevention techniques Problem:PT24- Decreased Balance/Increased Fall Risk Goal:Balance/Fall risk PT Ortho goal Completed not test this date due to increase in fatigue from tx and will address next visit Instruct on fall prevention Problem:Risk of Falls Goal:Balance/Fall risk goal Completed Educated patient with using AD and clearing clutter in home to reduce fall risk Interventions Intervention Associated Problem/Goal Status Variance Visit Notes Assess/Instruct in pain management techniques and evaluate effectiveness. Problem:AP02- Decreased Knowledge of Pain Management Goal:Pain management education goal Completed Educated patient with importance of taking pain medication and training patient on correct supine position to improve with comfort to increase with sleeping ability Assess/Instruct in edema management techniques Problem:AP03- Decreased Knowledge of Edema Control Goal:Edema education goal Completed Educated patient with importance of icing and elevation to B knee 3x a day for one hour to improve with comfort and reduce edema. Educated patient with importance of elevation and benefits patient will receive which will lead patient to reaching LTGs Report abnormal assessment to physician Problem:Abnormal Findings Goal:Assessment findings goal Completed Patient assessment findings are WNL for the patient BP, pulse, SpO2 and tempature Assess/Instruct in therapeutic exercises and perform manual techniques to improve functional ROM. Problem:PT11- Decreased ROM Goal:Range of motion goal Completed Supine AROM/PROM to R knee to increase with flexion and extension to improve with LRAD with gait and progress with safety in home when performing ADLs. Patient measured 0-98 degrees within R knee and 0-94 within L knee, patellar movement to improve with joint mobility and increase comfort with gait/transfers ability in home. Patient tolerated all manual ROM well with showing increase in soreness post tx PT muscle re-education Problem:PT14- Decreased Strength Goal:Strength PT Ortho goal Completed Supine strengthening exercise to B knee to progress with quad strength to improve with stair mobility in community and safety with exiting and entering home with LRAD. Patient needed cues with slowing with lalita and reaching full ROM to progress with benefit of strengthening exercise. Patient needed often rest breaks due to increase in soreness and fatigue within B quad and hamstring. PT establish or upgrade home program Problem:PT16- Decreased knowledge of Home Exercise Program Goal:HEP education goal Completed Reviewed HEP with patient and educated patient with importance of completing daily to reach LTGs and return to prior level of safety in home. Educated patient with importance of elevation to BLE to reduce edema to progress with gait ability and increasing with supine knee flexion stretching PT transfer training Problem:PT19- Decreased Transfer Ability Goal:Transfer goal Completed Patient performed a variety of transfers from high and low surfaces in home with using FWW. Patient needed educated with anterior weight shift, progressing with wider JACQUES and pushing from elevated armrest to improve with safety and less assistance from therapist. Patient was SBA with all transfers in home with verbal cues on slowing with lalita and reaching back when sitting to redcue plopping. Progressing with form with all transfers in home will improve with safety and independence Assess/Instruct in safe gait techniques in home. Problem:PT20- Decreased Ambulation Ability Goal:Ambulation PT Ortho goal Completed Patient is ambulating in home with using FWW and OK at all times. Challenged patient with stepping over and around objects in home to improve with safety and stability in community with reducing assistance from family. Educated patient with importance of good posture and breathing pattern to improve with gait duration and efficiency. Patient was challenged with ambulating on variety of surfaces in home to improve with safety outside of home. Patient was able to ambulate for 4-5 minutes before needing a rest break due to fatigue and weakness within B knees. Patient needed educated with importance of heel strike and toe off within BLE and staying within AD at all times to increase with safety and stability Assess/Instruct in safe home exit/entry and community prepared mobility techniques Problem:PT23- Decreased Home Exit/Entry Ability Goal:Home exit/entry PT Ortho goal Completed patient refused stairs this date due to increase in pain post tx Assess/Instruct in balance and fall prevention techniques Problem:PT24- Decreased Balance/Increased Fall Risk Goal:Balance/Fall risk PT Ortho goal Completed not test this date due to increase in fatigue from tx and will address next visit Instruct on fall prevention Problem:Risk of Falls Goal:Balance/Fall risk goal Completed Educated patient with staying within AD at all times to improve with gait safety and picking up rugs in home Goals Goal Associated Problem Outcome Goal Met? Visit Notes Pain management education goal AP02- Decreased Knowledge of Pain Management Partially Met No Edema education goal AP03- Decreased Knowledge of Edema Control Not Met No Assessment findings goal Abnormal Findings Partially Met No Range of motion goal PT11- Decreased ROM Not Met No Strength PT Ortho goal PT14- Decreased Strength Partially Met No HEP education goal PT16- Decreased knowledge of Home Exercise Program Partially Met No Transfer goal PT19- Decreased Transfer Ability Met No Ambulation PT Ortho goal PT20- Decreased Ambulation Ability Partially Met No Home exit/entry PT Ortho goal PT23- Decreased Home Exit/Entry Ability Not Met No Balance/Fall risk PT Ortho goal PT24- Decreased Balance/Increased Fall Risk Partially Met No Balance/Fall risk goal Risk of Falls Met No Interventions Intervention Associated Problem/Goal Status Variance Visit Notes Assess/Instruct in pain management techniques and evaluate effectiveness. Problem:AP02- Decreased Knowledge of Pain Management Goal:Pain management education goal Completed Educated patient with importance of supine position with sleeping to improve with sleeping patterns and progressing with ice and elevation to improve with healing and comfort Assess/Instruct in edema management techniques Problem:AP03- Decreased Knowledge of Edema Control Goal:Edema education goal Completed Educated patient with importance of icing and elevation to B knee 3x a day for one hour to improve with comfort and reduce edema. Educated patient with importance of elevation and benefits patient will receive which will lead patient to reaching LTGs Report abnormal assessment to physician Problem:Abnormal Findings Goal:Assessment findings goal Completed Patient assessment findings are WNL for the patient BP, pulse, SpO2 and tempature Assess/Instruct in therapeutic exercises and perform manual techniques to improve functional ROM. Problem:PT11- Decreased ROM Goal:Range of motion goal Completed Supine AROM/PROM to B knee to increase with flexion and extension to improve with LRAD with gait and progress with safety in home when performing ADLs. Patient measured 0-100 degrees within B knee, patellar movement to improve with joint mobility and increase comfort with gait/transfers ability in home. Patient tolerated all manual ROM well with showing increase in soreness post tx PT muscle re-education Problem:PT14- Decreased Strength Goal:Strength PT Ortho goal Completed Supine strengthening exercise to B knee to progress with quad strength to improve with stair mobility in community and safety with exiting and entering home with LRAD. Patient needed cues with slowing with lalita and reaching full ROM to progress with benefit of strengthening exercise. Patient needed often rest breaks due to increase in soreness and fatigue within B quad and hamstring. PT establish or upgrade home program Problem:PT16- Decreased knowledge of Home Exercise Program Goal:HEP education goal Completed Reviewed HEP with patient and educated patient with importance of completing daily to reach LTGs and return to prior level of safety in home. Educated patient with importance of grace stretching on chair and progressing with elevation to reduce edema PT transfer training Problem:PT19- Decreased Transfer Ability Goal:Transfer goal Completed Patient performed a variety of transfers from high and low surfaces in home with using FWW. Patient needed educated with anterior weight shift, progressing with wider JACQUES and pushing from elevated armrest to improve with safety and less assistance from therapist. Patient was OK with all transfers in home with verbal cues on slowing with lalita and reaching back when sitting to redcue plopping. Progressing with form with all transfers in home will improve with safety and independence Assess/Instruct in safe gait techniques in home. Problem:PT20- Decreased Ambulation Ability Goal:Ambulation PT Ortho goal Completed Patient is ambulating in home with using FWW and OK at all times. Challenged patient with stepping over and around objects in home to improve with safety and stability in community with reducing assistance from family. Educated patient with importance of good posture and breathing pattern to improve with gait duration and efficiency. Patient was challenged with ambulating on variety of surfaces in home to improve with safety outside of home. Patient was able to ambulate for 5 minutes before needing a rest break due to fatigue and weakness within BLE with showing increase in pain. Patient needed educated with equal stride length and progressing with heel strike and toe off within BLE to normlaize giat pattern Assess/Instruct in safe home exit/entry and community prepared mobility techniques Problem:PT23- Decreased Home Exit/Entry Ability Goal:Home exit/entry PT Ortho goal Completed not test this date due to increase in fatigue from tx and will address next visit Assess/Instruct in balance and fall prevention techniques Problem:PT24- Decreased Balance/Increased Fall Risk Goal:Balance/Fall risk PT Ortho goal Completed Instruct on fall prevention Problem:Risk of Falls Goal:Balance/Fall risk goal Completed Educated patient with using AD at all times and picking up rugs in home to reduce fall risk Interventions Intervention Associated Problem/Goal Status Variance Visit Notes Assess/Instruct in pain management techniques and evaluate effectiveness. Problem:AP02- Decreased Knowledge of Pain Management Goal:Pain management education goal Completed Educated patient with taking pain medication and using ice and elevation ad tolerated Assess/Instruct in edema management techniques Problem:AP03- Decreased Knowledge of Edema Control Goal:Edema education goal Completed Educated patient with importance of icing and elevation to B knee 3x a day for one hour to improve with comfort and reduce edema. Educated patient with importance of elevation and benefits patient will receive which will lead patient to reaching LTGs Report abnormal assessment to physician Problem:Abnormal Findings Goal:Assessment findings goal Completed Patient assessment findings are WNL for the patient BP, pulse, SpO2 and tempature Assess/Instruct in therapeutic exercises and perform manual techniques to improve functional ROM. Problem:PT11- Decreased ROM Goal:Range of motion goal Completed Supine AROM/PROM to knee to increase with flexion and extension to improve with LRAD with gait and progress with safety in home when performing ADLs. Patient measured 0-101 degrees within R knee and 0-99 within L knee, patellar movement to improve with joint mobility and increase comfort with gait/transfers ability in home. Patient tolerated all manual ROM well with showing increase in soreness post tx PT muscle re-education Problem:PT14- Decreased Strength Goal:Strength PT Ortho goal Completed Supine strengthening exercise to B knee to progress with quad strength to improve with stair mobility in community and safety with exiting and entering home with LRAD. Patient needed cues with slowing with lalita and reaching full ROM to progress with benefit of strengthening exercise. Patient needed often rest breaks due to increase in soreness and fatigue within B quad and hamstring. PT establish or upgrade home program Problem:PT16- Decreased knowledge of Home Exercise Program Goal:HEP education goal Completed Reviewed HEP with patient and educated patient with importance of completing daily to reach LTGs and return to prior level of safety in home. Educated patient with importance of stretching program and progressing as tolerated PT transfer training Problem:PT19- Decreased Transfer Ability Goal:Transfer goal Completed Patient performed a variety of transfers from high and low surfaces in home with using SPC. Patient needed educated with anterior weight shift, progressing with wider JACQUES and pushing from elevated armrest to improve with safety and less assistance from therapist. Patient was SBA with all transfers in home with verbal cues on slowing with lalita and reaching back when sitting to redcue plopping. Progressing with form with all transfers in home will improve with safety and independence Assess/Instruct in safe gait techniques in home. Problem:PT20- Decreased Ambulation Ability Goal:Ambulation PT Ortho goal Completed Patient is ambulating in home with using SPC and independent at all times. Challenged patient with stepping over and around objects in home to improve with safety and stability in community with reducing assistance from family. Educated patient with importance of good posture and breathing pattern to improve with gait duration and efficiency. Patient was challenged with ambulating on variety of surfaces in home to improve with safety outside of home. Patient was able to ambulate for 5-6 minutes before needing a rest break due to fatigue and weakness within BLE. Patient needed educated with equal stride length and progressing with L knee flexion to improve with gait pattern and safety with stepping over around objects Assess/Instruct in safe home exit/entry and community prepared mobility techniques Problem:PT23- Decreased Home Exit/Entry Ability Goal:Home exit/entry PT Ortho goal Completed patient refused stairs due to increase in pain/soreness from tx Assess/Instruct in balance and fall prevention techniques Problem:PT24- Decreased Balance/Increased Fall Risk Goal:Balance/Fall risk PT Ortho goal Completed Patient was challenged with a variety of dynamic and static balance exercises on a variety of even and uneven surfaces with using no support. Progressing with balance will reduce fall risk when in community and improve transfer safety with less assistance from spouse. Patient was challenged with reaching high and low for objects with showing large weight shifts and crossing midline Cued patient with importance of posture and progressing with anterior lean to improve with safety and reducing posterior sway. Patient showed fair- balance with using no AD and fair balance with using one hand for support Instruct on fall prevention Problem:Risk of Falls Goal:Balance/Fall risk goal Completed Patient needed educated with using AD at all times with gait and transfers to improve with safety and stability in home Interventions Intervention Associated Problem/Goal Status Variance Visit Notes Assess/Instruct in pain management techniques and evaluate effectiveness. Problem:AP02- Decreased Knowledge of Pain Management Goal:Pain management education goal Completed Educated patient with importance of icing and elevation to B knee 3x a day for one hour to improve with comfort and reduce edema. Educated patient with importance of elevation and benefits patient will receive which will lead patient to reaching LTGs Assess/Instruct in edema management techniques Problem:AP03- Decreased Knowledge of Edema Control Goal:Edema education goal Completed see above Report abnormal assessment to physician Problem:Abnormal Findings Goal:Assessment findings goal Completed Patient assessment findings are WNL for the patient BP, pulse, SpO2 and tempature Assess/Instruct in therapeutic exercises and perform manual techniques to improve functional ROM. Problem:PT11- Decreased ROM Goal:Range of motion goal Completed Supine AROM/PROM to B knee to increase with flexion and extension to improve with LRAD with gait and progress with safety in home when performing ADLs. Patient measured 0-110 degrees within B knee, patellar movement to improve with joint mobility and increase comfort with gait/transfers ability in home. Patient tolerated all manual ROM well with showing increase in soreness post tx PT muscle re-education Problem:PT14- Decreased Strength Goal:Strength PT Ortho goal Completed Supine strengthening exercise to B knee to progress with quad strength to improve with stair mobility in community and safety with exiting and entering home with LRAD. Patient needed cues with slowing with lalita and reaching full ROM to progress with benefit of strengthening exercise. Patient needed often rest breaks due to increase in soreness and fatigue within B quad and hamstring. PT establish or upgrade home program Problem:PT16- Decreased knowledge of Home Exercise Program Goal:HEP education goal Completed Reviewed HEP with patient and educated patient with importance of completing daily to reach LTGs and return to prior level of safety in home. Educated patient with chair flexion stretch to B knees PT transfer training Problem:PT19- Decreased Transfer Ability Goal:Transfer goal Completed Patient performed a variety of transfers from high and low surfaces in home with using SPC. Patient needed educated with anterior weight shift, progressing with wider JACQUES and pushing from elevated armrest to improve with safety and less assistance from therapist. Patient was independent with all transfers in home with verbal cues on slowing with lalita and reaching back when sitting to redcue plopping. Progressing with form with all transfers in home will improve with safety and independence Assess/Instruct in safe gait techniques in home. Problem:PT20- Decreased Ambulation Ability Goal:Ambulation PT Ortho goal Completed Patient is ambulating in home with using SPC and OK at all times. Challenged patient with stepping over and around objects in home to improve with safety and stability in community with reducing assistance from family. Educated patient with importance of good posture and breathing pattern to improve with gait duration and efficiency. Patient was challenged with ambulating on variety of surfaces in home to improve with safety outside of home. Patient was able to ambulate for 8-10 minutes before needing a rest break due to fatigue and weakness within BLE. Patient needed educated with equal stride length and progressing with L knee flexion to norm[place]ize gait pattern Assess/Instruct in safe home exit/entry and community prepared mobility techniques Problem:PT23- Decreased Home Exit/Entry Ability Goal:Home exit/entry PT Ortho goal Completed patient refused due to weather Assess/Instruct in balance and fall prevention techniques Problem:PT24- Decreased Balance/Increased Fall Risk Goal:Balance/Fall risk PT Ortho goal Completed Patient was challenged with a variety of dynamic and static balance exercises on a variety of even and uneven surfaces with using no support. Progressing with balance will reduce fall risk when in community and improve transfer safety with less assistance from spouse. Patient was challenged with reaching high and low for objects with showing large weight shifts and crossing midline Cued patient with importance of posture and progressing with anterior lean to improve with safety and reducing posterior sway. Patient showed fair balance with using no AD and fair+ balance with using one hand for support. Patient scored 15 seconds on TUG test with using no AD Instruct on fall prevention Problem:Risk of Falls Goal:Balance/Fall risk goal Completed Educated patient with using handrails with stairs in home and picking up rugs to reduce fall risk Interventions Intervention Associated Problem/Goal Status Variance Visit Notes Assess/Instruct in pain management techniques and evaluate effectiveness. Problem:AP02- Decreased Knowledge of Pain Management Goal:Pain management education goal Completed Educated patient with taking pain pills and correct supine position to improve with sleeping ablity at night Assess/Instruct in edema management techniques Problem:AP03- Decreased Knowledge of Edema Control Goal:Edema education goal Completed Educated patient with importance of icing and elevation to B knee 3x a day for one hour to improve with comfort and reduce edema. Educated patient with importance of elevation and benefits patient will receive which will lead patient to reaching LTGs Report abnormal assessment to physician Problem:Abnormal Findings Goal:Assessment findings goal Completed Patient assessment findings are WNL for the patient BP, pulse, SpO2 and tempature Assess/Instruct in therapeutic exercises and perform manual techniques to improve functional ROM. Problem:PT11- Decreased ROM Goal:Range of motion goal Completed Supine AROM/PROM to B knee to increase with flexion and extension to improve with LRAD with gait and progress with safety in home when performing ADLs. Patient measured 0-116 degrees within R knee and 0-110 within L knee, patellar movement to improve with joint mobility and increase comfort with gait/transfers ability in home. Patient tolerated all manual ROM well with showing increase in soreness post tx PT muscle re-education Problem:PT14- Decreased Strength Goal:Strength PT Ortho goal Completed Supine AROM/PROM to B knee to increase with flexion and extension to improve with LRAD with gait and progress with safety in home when performing ADLs. Patient measured 0-100 degrees within B knee, patellar movement to improve with joint mobility and increase comfort with gait/transfers ability in home. Patient tolerated all manual ROM well with showing increase in soreness post tx PT establish or upgrade home program Problem:PT16- Decreased knowledge of Home Exercise Program Goal:HEP education goal Completed Reviewed HEP with patient and educated patient with importance of completing daily to reach LTGs and return to prior level of safety in home. Educated patient with importance of new stretching exercises to improve with B knee flexion and progressing with extension ability PT transfer training Problem:PT19- Decreased Transfer Ability Goal:Transfer goal Completed Patient performed a variety of transfers from high and low surfaces in home with using SPC. Patient needed educated with anterior weight shift, progressing with wider JACQUES and pushing from elevated armrest to improve with safety and less assistance from therapist. Patient was independent with all transfers in home with verbal cues on slowing with lalita and reaching back when sitting to redcue plopping. Progressing with form with all transfers in home will improve with safety and independence Assess/Instruct in safe gait techniques in home. Problem:PT20- Decreased Ambulation Ability Goal:Ambulation PT Ortho goal Completed Patient is ambulating in home with using SPC and OK at all times. Challenged patient with stepping over and around objects in home to improve with safety and stability in community with reducing assistance from family. Educated patient with importance of good posture and breathing pattern to improve with gait duration and efficiency. Patient was challenged with ambulating on variety of surfaces in home to improve with safety outside of home. Patient was able to ambulate for 10 minutes before needing a rest break due to fatigue and weakness within BLE. Patient needed educated with equal stride length and progressing with heel strike and toe off within B LE. Challenged patient with quick stop and go's to improve with safety and independence in community Assess/Instruct in safe home exit/entry and community prepared mobility techniques Problem:PT23- Decreased Home Exit/Entry Ability Goal:Home exit/entry PT Ortho goal Completed Patient is performing stair mobility with using SPC for support with CGA at all times. Educated patient with which LE to lead with to improve with comfort and stability within L LE. Progressing with strength and mobility within L knee will lead patient to reciprocal gait pattern and require less assistance from family with all stair mobility. Educated patient with importance of posture and foot placement on steps to improve safety and reduce fall risk Assess/Instruct in balance and fall prevention techniques Problem:PT24- Decreased Balance/Increased Fall Risk Goal:Balance/Fall risk PT Ortho goal Completed Patient was challenged with a variety of dynamic and static balance exercises on a variety of even and uneven surfaces with using no support. Progressing with balance will reduce fall risk when in community and improve transfer safety with less assistance from spouse. Patient was challenged with reaching high and low for objects with showing large weight shifts and crossing midline Cued patient with importance of posture and progressing with anterior lean to improve with safety and reducing posterior sway. Patient showed fair balance with using no AD and good balance with using one hand for support. Patient scored 13 seconds on TUG test with using SPC Instruct on fall prevention Problem:Risk of Falls Goal:Balance/Fall risk goal Completed Educated patient with using SPC at all times and picking up rugs in home to reduce fall risk Visit Details Visit Type -[facility] [place] Discipline -Alf Problems Problem Start Date Status Goals Interventions Abnormal Findings Disciplines: Alf, Physical Therapy, Occupational Therapy, Speech Therapy, Home Health Aide, Medical Social Work, Spiritual Care, Art Therapy, Massage Therapy, Registered Dietitian, Student - Medical Social Work 01/08/2020 Resolved on 01/24/2020 1 goal linked to scheduled/documente d intervention 1 goal intervention scheduled/documented in this visit Home Medication Management Disciplines: Alf 01/08/2020 Resolved on 01/24/2020 1 goal linked to scheduled/documente d intervention 4 goal interventions scheduled/documented in this visit Learning/Teaching Needs - Joint Replacement Disciplines: Alf 01/08/2020 Resolved on 01/24/2020 1 goal linked to scheduled/documente d intervention 6 goal interventions scheduled/documented in this visit Pain Management Disciplines: Alf 01/08/2020 Resolved on 01/24/2020 1 goal linked to scheduled/documente d intervention 1 goal intervention scheduled/documented in this visit Risk of Falls Disciplines: Alf, Physical Therapy, Occupational Therapy, Speech Therapy, Home Health Aide, Medical Social Work, Spiritual Care, Art Therapy, Massage Therapy, Registered Dietitian, Student - Medical Social Work 01/08/2020 Resolved on 01/24/2020 1 goal linked to scheduled/documente d intervention 1 goal intervention scheduled/documented in this visit Skilled Assessment Disciplines: Alf 01/08/2020 Resolved on 01/24/2020 1 goal linked to scheduled/documente d intervention 3 goal interventions scheduled/documented in this visit Interventions Intervention Associated Problem/Goal Status Variance Visit Notes Report abnormal assessment to physician Problem:Abnormal Findings Goal:Assessment findings goal Completed Instruct on high risk medications Problem:Home Medication Management Goal:Medication management goal Completed Review and identify unnecessary therapeutic duplication; cardiovascular medication problems related to dizziness; continued hyper/hypotension or low pulse; falls, dizziness, or confusion; and inappropriate use of non-steroidal anti-inflammatory drugs (NSAIDs). Medication box Problem:Home Medication Management Goal:Medication management goal Completed Skilled assessment medications Problem:Home Medication Management Goal:Medication management goal Completed Teach medication management Problem:Home Medication Management Goal:Medication management goal Completed Incision site care Problem:Learning/Tea michele Needs - Joint Replacement Goal:Post-op complication goal Completed Instruct diet Problem:Learning/Tea michele Needs - Joint Replacement Goal:Post-op complication goal Completed Instruct on constipation prevention Problem:Learning/Tea michele Needs - Joint Replacement Goal:Post-op complication goal Completed Instruct on management of immobility complications Problem:Learning/Tea michele Needs - Joint Replacement Goal:Post-op complication goal Completed Instruct on the prevention of deep vein thrombosis Problem:Learning/Tea michele Needs - Joint Replacement Goal:Post-op complication goal Completed Teach Problem:Learning/Tea michele Needs - Joint Replacement Goal:Post-op complication goal Completed Instruct on pain management techniques Problem:Pain Management Goal:Pain management goal Completed Instruct on fall prevention Problem:Risk of Falls Goal:Balance/Fall risk goal Completed Obtain pulse oximetry Problem:Skilled Assessment Goal:Rehospitalizati on joint replacement goal Completed SN/HAIR BOILER obtain vital signs Problem:Skilled Assessment Goal:Rehospitalizati on joint replacement goal Completed Teaching - disease process Problem:Skilled Assessment Goal:Rehospitalizati on joint replacement goal Completed Interventions Intervention Associated Problem/Goal Status Variance Visit Notes Report abnormal assessment to physician Problem:Abnormal Findings Goal:Assessment findings goal Completed Instruct on high risk medications Problem:Home Medication Management Goal:Medication management goal Completed Review and identify unnecessary therapeutic duplication; cardiovascular medication problems related to dizziness; continued hyper/hypotension or low pulse; falls, dizziness, or confusion; and inappropriate use of non-steroidal anti-inflammatory drugs (NSAIDs). Medication box Problem:Home Medication Management Goal:Medication management goal Completed n. Skilled assessment medications Problem:Home Medication Management Goal:Medication management goal Completed Teach medication management Problem:Home Medication Management Goal:Medication management goal Completed Incision site care Problem:Learning/Tea michele Needs - Joint Replacement Goal:Post-op complication goal Completed Instruct diet Problem:Learning/Tea michele Needs - Joint Replacement Goal:Post-op complication goal Completed Instruct on constipation prevention Problem:Learning/Tea michele Needs - Joint Replacement Goal:Post-op complication goal Completed Instruct on management of immobility complications Problem:Learning/Tea michele Needs - Joint Replacement Goal:Post-op complication goal Completed Instruct on the prevention of deep vein thrombosis Problem:Learning/Tea michele Needs - Joint Replacement Goal:Post-op complication goal Completed Teach Problem:Learning/Tea michele Needs - Joint Replacement Goal:Post-op complication goal Completed Instruct on pain management techniques Problem:Pain Management Goal:Pain management goal Completed Instruct on fall prevention Problem:Risk of Falls Goal:Balance/Fall risk goal Completed Obtain pulse oximetry Problem:Skilled Assessment Goal:Rehospitalizati on joint replacement goal Completed SN/HAIR BOILER obtain vital signs Problem:Skilled Assessment Goal:Rehospitalizati on joint replacement goal Completed Teaching - disease process Problem:Skilled Assessment Goal:Rehospitalizati on joint replacement goal Completed Skilled observation and assessment general assessment Problem:Skilled Assessment Goal:Rehospitalizati on joint replacement goal Completed Actions Home Health Visit - Actions and Narratives (unrecognized section and content) cp assess, med review, bilat mepilex drsg intact. education on falls prevention, infection prevention, diet, activity, bowel regimen Narratives Patient is a 64 y.o. male/fe male referred to PT by Dr. Day to address impairments and functional limitations s/p B TKA Surgery date: 01/06/20 Returned Home: 01/07/20 Ongoing 11/06 L, 08/06 R pain x 10 years prior to surgery. Living arrangement/House set up: one story home lives with and cat PLOF: I with ambulation and ADLS, but starting to also have L hip pain Falls in last six months: 0 Equipment: FWW, cane, admissions assistant, elevated toilet seat, shower chair Post Op Dressing: mepilex Goal: Hope to be back to work by January 30 ([employer] and [employer]) Physician F/U Appointment: 01/22/20 at 9:45 Preferred Appointment Time: any time, [facility] Patient Agrees to PT frequency at 1w1, 3w2 Treatment may consist of any combinationa of of the following: ther ex for ROM and strengthening, NMR, transfer/gait/stair training, HEP, cryotherapy, patient education Skilled PT services are required to increase ROM, strength, functional mobility and transfer independence Actions cp assess, med review, stapl e removal Actions call placed to carla to sp mendoza sn visit for dc. carla stated he did not want a nurse visit, ll mikaela are removed, he had his follow up visit with dr day. telephone discharge Actions cp assess, med review, drsrose intact, pain under control Procedure Summary Anesthesia Record (breti alan section and content) Events Date Time Event Comment 01/06/2020 0953 1129 AN Equip Check 1139 An Start 1139 Patient Verification 1140 An Start Data 1140 Anesthesia Ready 1240 An Tourn Inflated 325 mm/hg on left leg >>>>>>>>>>> INCISION <<<<<<<<<< 1243 An Data Art 1304 An ESU 1310 An ESU 1321 An Tourn Deflated 1334 An Tourn Inflated 325 MM/HG ON RIGHT LEG >>>>>>>>> INCISION <<<<<<<<<<<<<<<< 1409 An Tourn Deflated DOWN @ 35 MINUTES 1441 an stop data 1445 Handoff 1446 An Stop MedsMeds Agents No agents on file. Blood No blood administrations on file. Lines, Drains, and Airways Type Details Placement Removal Wound 01/06/20; 1213; Surg ical Wou; Knee; Left; ADHESIVE 1ML SKIN TOPICAL HIGH VISCOSITY EXOFIN (x1), DRESSING 4 X 10IN BORDER POST AG MEPILEX (x1), BANDAGE 6IN X 10YD ELASTIC MATRIX STERL (x1) 01/06/20 1213 by Amanda Portillo RN Wound 01/06/20; 1213; Surg ical Wou; Knee; Right; ADHESIVE 1ML SKIN TOPICAL HIGH VISCOSITY EXOFIN (x1), DRESSING 4 X 10IN BORDER POST AG MEPILEX (x1), BANDAGE 6IN X 10YD ELASTIC MATRIX STERL (x1) 01/06/20 1213 by Amanda Portillo RN Peripheral IV Placement Date: 11/16; Placement Time: 1012; Orientation: Left, Posterior; Location: Hand; Site Prep: Chlorhexidine ; Inserted by: Renea PRESTON; Patient Tolerance: Tolerated well; Removal Date: 01/07/20; Removal Time: 1425; Removal Reason: Per order 01/06/20 1012 by Sarahi Morton RN 01/07/20 1425 by Zainab Goodson RN Urethral Catheter Placement Date: 11/16; Placement Time: 1153; Inserted by: Jesús Portillo RN; Type: Double-lumen, Latex; Size: 16 Fr.; Balloon Size: 10 mL; Urine Returned: Yes; Removal Date: 01/07/20; Removal Time: 0628; Removal Reason: Per order 01/06/20 1153 by Amanda Portillo RN 01/07/20 0628 by Bing Dai RN OR PreOp - Sharlene Ahuja CNP - 12/19/2019 7:15 AM EDT OR Notes (unrecognized secti on and content) ANESTHESIA PREPROCEDURE EVALUATION Physical Exam Airway Neck ROM: full Cardiovascular Rhythm: regular Pulmonary Breath sounds are clear to auscultation Neurological Mental Status: alert Dental Dental exam is normal and age appropriate Review of Systems / Medical History - No history of anesthetic complications Pulmonary - negative Neurological / Psychological - negative Cardiovascular Exercise tolerance: good Positive: hyperlipidemia Gastrointestinal / Hepatic / Renal - negative Endocrine / Musculoskeletal - negative documented in this encounter FOR RECORDS PERTAINING TO PATIENTS WHO ARE OR HAVE BEEN ENROLLED IN A CHEMICAL DEPENDENCY/SUBSTANCEABUSE PROGRAM, SOME INFORMATION MAY BE OMITTED. This clinical summary was aggregated from multiple sources. Caution should be exercised in using it in the provision of clinical care. This summary normalizes information from multiple sources, and as a consequence, information in this document may materially change the coding, format and clinical context of patient data. In addition, data may be omitted in some cases. CLINICAL DECISIONS SHOULD BE BASED ON THE PRIMARY CLINICAL RECORDS. [facility]. provides no warranty or guarantee of the accuracy or completeness of information in this document.
== END | disposition home or self-care (01) ==
LOC: MRI 08:08
PROVIDERS: PCP Family Medicine; Referring Provider Family Medicine; Visit Provider Family Medicine
DX: M54.16 Radiculopathy, lumbar region (principal)
CPT/HCPCS: 72148

== ENCOUNTER → 2023-05-29 | Outpatient (CLI) | payer MEDICARE, BC, SELFPAY ==
--- NOTE | 2023-05-29 08:54 | ECHOCS_ITS ---
Reason For Study: CAD/ASHD Procedure This was a 2D Doppler, Color Flow transthoracic echocardiogram. The study was technically difficult. Contrast injection was performed. Exam performed in department. Left Ventricle Normal LV size. Mild concentric left ventricular hypertrophy. Left ventricular systolic function is normal. The estimated ejection fraction is 65 %. Stage 1 diastolic dysfunction. No regional wall motion abnormalities noted. Right Ventricle Normal RV size. Normal systolic function. Atria Normal left atrium. Normal right atrium. Mitral Valve Normal mitral valve. Tricuspid Valve Normal tricuspid valve. Aortic Valve Trisinus/trileaflet aortic valve. Mild focal aortic valve calcification. Pulmonic Valve The pulmonic valve is not well visualized. Great Vessels Normal aortic root. The pulmonary artery is normal size. Normal inferior vena cava. Pericardium/Pleural No pericardial effusion. Medication 22 gauge I.V. with prn adaptor inserted into right arm. Diluted definity 2.5ml given slow IV push to enhance endocardial definition. MMode/2D Measurements & Calculations LVIDd: 4.3 cm IVSd: 1.2 cm Ao root diam: 3.4 cm LVIDs: 2.3 cm LVPWd: 1.3 cm FS: 46.6 % LAV(MOD-bp): 36.2 ml LVAd ap4: 30.5 cm2 SV(MOD-sp4): 71.0 ml LAV(MOD-bp) Indexed: 17.5 ml/m2 LVLd ap4: 7.8 cm LAV(MOD-sp2): 49.8 ml EDV(MOD-sp4): 100.5 ml LAV(MOD-sp4): 22.3 ml EDV(sp4-el): 100.7 ml LVAs ap4: 14.8 cm2 LVLs ap4: 6.4 cm ESV(MOD-sp4): 29.5 ml ESV(sp4-el): 29.3 ml EF(MOD-sp4): 70.7 % EF(sp4-el): 70.9 % SV(sp4-el): 71.4 ml LA A4 area: 11.1 cm2 RA A4 area: 13.1 cm2 Time Measurements MV dec time: 0.27 sec Doppler Measurements & Calculations MV E max lupillo: 42.0 cm/sec Lat Peak E' Lupillo: 5.5 cm/sec Med Peak E' Lupillo: 5.3 cm/sec MV A max lupillo: 53.0 cm/sec E/E' lat: 7.6 E/E' med: 7.9 MV E/A: 0.79 MV V2 max: 67.5 cm/sec Ao V2 max: 159.0 cm/sec MV max P.8 mmHg MV dec slope: 156.3 cm/sec2 Ao max P.1 mmHg MV V2 mean: 42.7 cm/sec Ao V2 mean: 113.5 cm/sec MV mean P.83 mmHg Ao mean P.9 mmHg MV V2 VTI: 22.4 cm Ao V2 VTI: 34.7 cm AV (velocity ratio): 0.71 LV V1 max: 101.1 cm/sec PA V2 max: 101.9 cm/sec LV V1 max P.1 mmHg PA V2 mean: 69.0 cm/sec LV V1 mean P.4 mmHg LV V1 mean: 73.0 cm/sec LV V1 VTI: 24.4 cm ECHO/Echo Complete W/ Contrast Interpretation Summary Normal LV size. Mild concentric left ventricular hypertrophy. Left ventricular systolic function is normal. The estimated ejection fraction is 65 %. Stage 1 diastolic dysfunction. Contrast injection was performed. Ordering Physician: Dominick Larkin Referring Physician: Dominick Larkin Performed By: Rachel Kate RCS
== END | disposition home or self-care (01) ==
LOC: CVS 08:54
PROVIDERS: PCP Family Medicine; Referring Provider Internal Medicine Cardiovascular Disease; Visit Provider Internal Medicine Cardiovascular Disease
DX: Z01.810 Encounter for preprocedural cardiovascular examination (principal); I25.10 Atherosclerotic heart disease of native coronary artery without angina pectoris
CPT/HCPCS: 93306; Q9957; A4216; C8929

== ENCOUNTER → 2023-12-21 | Outpatient (CLI) | payer MEDICARE, BC, SELFPAY ==
[2023-12-21 11:59] LABS: Hematocrit 40.8 % (40-54); Hemoglobin 14.2 g/dL (13.0-16.5); Mean Corp Hgb Conc 34.8 g/dL (32-36); Mean Corpuscular Hgb 31.1 pg (27.0-32.0); Mean Corpuscular Volume 89.3 fL (80-94); Mean Platelet Vol. 9.7 fl (6.2-12.0); Platelet Count 195 K/mm3 (150-450); RBC Distribution Width CV 12.9 % (11.6-14.6); RBC Distribution Width SD 41.9 fl (35.1-43.9); Red Blood Count 4.57 M/mm3 (4.6-6.2); White Blood Count 5.1 K/mm3 (4.4-11.0)
[2023-12-21 12:58] LABS: Anion Gap 7 (5-15); BUN 21 mg/dL (7-18); BUN/Creat Ratio 19.8 RATIO (10-20); Calcium,Total 9.4 mg/dL (8.5-10.1); Chloride 111 mmol/L (98-107); Creatinine, Serum 1.06 mg/dL (0.70-1.30); EST Glomerular Filtration Rate 74 mL/min (>60); Est Glom Filt Rate - Afr Amer 89 mL/min (>60); Glucose 130 mg/dL (74-106); Potassium 3.9 mmol/L (3.5-5.1); Sodium Level 141 mmol/L (136-145)
== END | disposition home or self-care (01) ==
LOC: BFHLAB 10:30
PROVIDERS: PCP Family Medicine
DX: Z01.818 Encounter for other preprocedural examination (principal)
CPT/HCPCS: 36415; 80048; 85027

== ENCOUNTER 2024-06-07 08:12 | Outpatient (CLI) | payer MEDICARE, BC, SELFPAY ==
[2024-06-07 11:06] LABS: AST(SGOT) 25 U/L (<=37); Alanine Aminotransfer ALT/SGPT 29 U/L (<=46); Albumin, Serum 4.4 g/dL (3.4-4.8); Alkaline Phosphatase 62 U/L (40-129); Bilirubin, Direct 0.18 mg/dL (0.00-0.30); Cholesterol 198 mg/dL (<=200); Globulin 2.3 g/dL (2.2-4.2); High Density Lipoprotein 35 mg/dL; Low Density Lipoprotein Calc. 121 mg/dL; PSA,Total - Annual Screen 1.53 ng/mL (0.02-4.00); Protein, Total 6.7 g/dL (5.9-8.4); Total Bilirubin 0.45 mg/dL (0.00-1.30); Triglycerides 212 mg/dL; Uric Acid 5.7 mg/dL (3.5-7.2); Very Low Density Lipoprotein 42 mg/dL (5-40); cholesterol:hdl ratio screen 5.66
== END 2024-06-07 23:59 | disposition home or self-care (01) ==
LOC: MTLAB 08:14
PROVIDERS: PCP Family Medicine; Referring Provider Family Medicine; Visit Provider Family Medicine
DX: M10.9 Gout, unspecified (principal); Z51.81 Encounter for therapeutic drug level monitoring; Z12.5 Encounter for screening for malignant neoplasm of prostate
CPT/HCPCS: 36415; 80061; 80076; 84153; 84443; 84550; G0103

== ENCOUNTER → 2024-09-20 | Outpatient (CLI) | payer MEDICARE, BC, SELFPAY ==
--- NOTE | 2024-09-20 13:18 | CT_ITS ---
PROCEDURE: ABDOMEN/PELVIS WITHOUT CONT 09/20/2024 REASON FOR EXAM: UNSPECIFIED ABDOMINAL PAIN TECHNIQUE: ABDOMEN/PELVIS WITHOUT CONT Noncontrast technique limits evaluation of the abdominal and pelvic viscera. Coronal and Sagittal reconstruction series were provided. One or more dose reduction techniques were used (e.g., Automated exposure control, adjustment of the mA and/or kV according to patient size, use of iterative reconstruction technique). RADIATION DOSE SUMMARY: CTDlvol: 53 mGy DLP: 2004 mGycm COMPARISON: No FINDINGS: Under aerated lung bases. Normal heart size. Status post cholecystectomy. Unremarkable liver, pancreas, spleen, adrenal glands, kidneys. No hydronephrosis. Normal bladder. Status post left-sided orchiectomy. Normal prostate. No retroperitoneal or pelvic adenopathy. No free air. Nondistended bowel. Normal appendix. Diverticulosis. No acute large bowel findings. Lumbar spine degeneration. No acute large bowel findings. CT/Abdomen/Pelvis without Cont IMPRESSION: No acute findings Reading Location: [facility]
[2024-09-20 13:40] VITALS: BP 101/55; PULSE 66; RESP 16; TEMP 36.4; O2SAT 96; BMI 28.1
[2024-09-20 14:05] VITALS: BP 125/51; PULSE 62; RESP 16; O2SAT 96
== END | disposition home or self-care (01) ==
LOC: CT 13:17
PROVIDERS: PCP Family Medicine; Referring Provider Nurse Practitioner Family; Visit Provider Family Medicine
DX: R10.9 Unspecified abdominal pain (principal); R07.9 Chest pain, unspecified; I10 Essential (primary) hypertension; E78.5 Hyperlipidemia, unspecified
CPT/HCPCS: 74176; 75574; Q9967